=== PATIENT | female | born 1950 | race Caucasian/White ===

== ENCOUNTER 2017-03-15 19:55 | Observation (INO) | payer OTHER, BC ==
[~2017-03-15] VITALS: Ht 170.2 cm; Wt 74.6 kg
[~2017-03-15 19:55] MED LIST changes: -LISI-787 PO; -METO-217 PO; -OPTIRAY 320 IV PRN; -OXYC-57 PO
[2017-03-15] MEDS ORDERED: SODIUM CHLORIDE 0.9% 1000ML 1,000 ML IV STA (20:26)
[2017-03-15 21:04] LABS: BASO % 0.1 %; BASO ABS # 0.01 K/uL (0-0.2); COMPLETE YES; EOS % 0.2 %; HEMATOCRIT 36.8 % (37-47); IG% 0.1 %; LYMPH % 19.8 %; LYMPH ABS # 1.63 K/uL (1.2-3.4); MEAN CELL VOLUME 90.2 fL (80-100); MEAN CORPUSCULAR HEMOGLOBIN 30.1 pg (25-34); MEAN CORPUSCULAR HGB CONC 33.4 g/dl (32-36); MEAN PLATELET VOLUME 8.5 fL (7.4-10.4); NEUT % 70.8 %; PLATELET COUNT 158 K/uL (130-400); RED BLOOD COUNT 4.08 M/uL (4.2-5.4); WHITE BLOOD COUNT 8.24 K/uL (4.8-10.8)
--- NOTE | 2017-03-15 21:05 | EMERGENCY ROOM VISIT NOTE ---
History Report prepared by Lazarus: Serena Aparicio Under the Supervision of: Dr. Ld Colon M.D. First contact with patient: 20:10 Chief Complaint: ABDOMINAL PAIN Stated Complaint: APPENDIX Nursing Triage Summary: Patient states she had a CT done today and was told she has appendicitis. History of Present Illness The patient is a 66 year old female who presents to the Emergency Room requesting an appendectomy. She has been having constant abdominal pain since yesterday and went to her PCP and was directed to come to [facility], where she had a CT scan 1 hour [employer] to the ED for surgery. She notes the scan revealed appendicitis. She notes abdominal pain, pain with breathing, chills, and fevers. She rates her pain a 6/10 in severity. She notes the pain worsens with walking. She has a history of diverticulitis, though this pain is worse. She denies any nausea. She has a history of HTN, HLD, and Raynaud's disease. She notes taking half a dose of Xanax nightly. She has had a hysterectomy and thyroidectomy. Source of History: patient, spouse/significant other Onset: 1 hour [employer] Position: abdomen (RLQ) Symptom Intensity: 6/10 Quality: other (abdominal pain) Timing: constant Modifying Factors (Worsening): other (walking) Associated Symptoms: + fevers, + chills, + abdominal pain Note: She notes pain with breathing. Review of Systems As above. All other systems reviewed were negative unless otherwise stated in history. At least 10 were reviewed Past Medical & Surgical Medical Problems: (1) HTN (hypertension) Surgical Problems: (1) H/O thyroidectomy (2) H/O: hysterectomy Old medical records were reviewed. Nurse's notes were reviewed and I agree with. Family History Heart disease Hypertension Social History Smoking Status: Current Every Day Smoker Drug Use: none Marital Status: Housing Status: lives with family Occupation Status: unemployed Current/Historical Medications Scheduled Alprazolam (Alprazolam), 0.5 TAB PO HS Aspirin (Aspirin Ec), 81 MG PO QPM Atorvastatin (Lipitor), 20 MG PO HS Calcium Carbonate-Cholecalcife (Caltrate 600+D), 1 TAB PO DAILY Fish Oil ([place]-3), 1 CAP PO DAILY Levothyroxine Sodium (Synthroid), 100 MCG PO QAM Lisinopril/Hctz (Zestoretic 20MG/12.5MG), 0.5 TAB PO DAILY Metoprolol Succinate (Toprol Xl), 50 MG PO DAILY Multivitamins/Minerals (Mvi With Minerals), 1 TAB PO DAILY Allergies Coded Allergies: No Known Allergies (Verified , 03/15/17) Physical Exam Vital Signs Date Time Temp Pulse Resp B/P (MAP) Pulse Ox O2 Delivery O2 Flow Rate FiO2 03/16/17 01:30 36.9 67 16 149/68 (104) 96 Room Air 03/16/17 01:20 36 70 16 132/71 (96) 97 Room Air 03/16/17 01:10 36 65 16 143/68 (84) 100 Oxymask 10 03/16/17 01:00 36 67 17 148/71 (85) 100 Oxymask 10 03/16/17 00:50 35.9 74 16 162/76 100 Oxymask 10 03/15/17 22:12 78 16 140/78 99 Room Air 03/15/17 20:06 36.3 86 18 114/73 97 Room Air Physical Exam General: Non-ill appearing middle-aged female in no acute distress. HEENT: Normal cephalic atraumatic. Pupils are equal round and reactive to light. Sclerae anicteric. Extraocular movements are intact. Oropharynx is pink with moist mucous membranes. No swelling of the mouth lips or tongue. Neck: Supple with a midline trachea. No meningeal signs or stiffness, no JVD or bruits. No Stridor. Chest: Clear to auscultation bilaterally. No wheezes or rhonchi. No increased work of breathing. Heart: regular rate and rhythm. Abdomen: Moderate tenderness to RLQ with guarding, nondistended without rebound or rigidity. Extremities: No cyanosis clubbing or edema. No calf tenderness or assymetry Spine/Back. Non tender to palpation. No CVA tenderness Skin: Good turgor without rashes. Neurologic exam: Cranial nerves two through 12 are intact. Motor and sensation are intact and symmetrical throughout. Medical Decision & Procedures ER Provider Diagnostic Interpretation: Radiology results as stated below per my review and radiologist interpretation: SINGLE VIEW CHEST CLINICAL HISTORY: Atypical chest pain. Appendicitis. FINDINGS: An AP, portable, upright chest radiograph is compared to study dated 01/10/2007. The examination is degraded by portable technique and patient rotation. The heart is top normal for projection and there is atherosclerotic calcification of the thoracic aorta. There is minimal bibasilar atelectasis. The lungs and pleural spaces are otherwise clear. No pneumothorax is seen. The skeletal structures are osteopenic. The bony thorax is grossly intact. IMPRESSION: No acute cardiopulmonary abnormality. Electronically signed by: Gildardo Stark M.D. 03/15/2017 9:27 PM Dictated Date/Time: 03/15/2017 9:25 PM Laboratory Results 03/15/17 20:50 Red Blood Count 4.08, Mean Corpuscular Volume 90.2, Mean Corpuscular Hemoglobin 30.1, Mean Corpuscular Hemoglobin Concent 33.4, Mean Platelet Volume 8.5, Neutrophils (%) (Auto) 70.8, Lymphocytes (%) (Auto) 19.8, Monocytes (%) (Auto) 9.0, Eosinophils (%) (Auto) 0.2, Basophils (%) (Auto) 0.1, Neutrophils # (Auto) 5.83, Lymphocytes # (Auto) 1.63, Monocytes # (Auto) 0.74, Eosinophils # (Auto) 0.02, Basophils # (Auto) 0.01 03/15/17 20:50 Test 03/15/17 20:50 White Blood Count 8.24 K/uL (4.8-10.8) Red Blood Count 4.08 M/uL (4.2-5.4) Hemoglobin 12.3 g/dL (12.0-16.0) Hematocrit 36.8 % (37-47) Mean Corpuscular Volume 90.2 fL (80-100) Mean Corpuscular Hemoglobin 30.1 pg (25-34) Mean Corpuscular Hemoglobin Concent 33.4 g/dl (32-36) Platelet Count 158 K/uL (130-400) Mean Platelet Volume 8.5 fL (7.4-10.4) Neutrophils (%) (Auto) 70.8 % Lymphocytes (%) (Auto) 19.8 % Monocytes (%) (Auto) 9.0 % Eosinophils (%) (Auto) 0.2 % Basophils (%) (Auto) 0.1 % Neutrophils # (Auto) 5.83 K/uL (1.4-6.5) Lymphocytes # (Auto) 1.63 K/uL (1.2-3.4) Monocytes # (Auto) 0.74 K/uL (0.11-0.59) Eosinophils # (Auto) 0.02 K/uL (0-0.5) Basophils # (Auto) 0.01 K/uL (0-0.2) RDW Standard Deviation 42.8 fL (36.4-46.3) RDW Coefficient of Variation 13.1 % (11.5-14.5) Immature Granulocyte % (Auto) 0.1 % Immature Granulocyte # (Auto) 0.01 K/uL (0.00-0.02) Anion Gap 7.0 mmol/L (3-11) Est Creatinine Clear Calc Drug Dose 64.0 ml/min Estimated GFR () 78.8 Estimated GFR (Non- 68.0 BUN/Creatinine Ratio 14.6 (10-20) Calcium Level 9.3 mg/dl (8.5-10.1) Total Bilirubin 0.7 mg/dl (0.2-1) Direct Bilirubin 0.2 mg/dl (0-0.2) Aspartate Amino Transf (AST/SGOT) 19 U/L (15-37) Alanine Aminotransferase (ALT/SGPT) 26 U/L (12-78) Alkaline Phosphatase 63 U/L (45-117) Total Protein 7.6 gm/dl (6.4-8.2) Albumin 3.6 gm/dl (3.4-5.0) Lipase 83 U/L (73-393) Laboratory studies as stated above per my review. Medications Administered Medications (Trade) Dose Ordered Sig/Jono Route Start Time Stop Time Status Last Admin Dose Admin Sodium Chloride 1,000 ml @ 999 mls/hr Q1H1M STAT IV 03/15/17 20:26 03/15/17 21:26 DC 03/15/17 20:26 999 MLS/HR Lidocaine HCl (Xylocaine 1% Inj (Local)) 20 ml STK-MED ONCE .ROUTE 03/15/17 23:48 03/15/17 23:49 DC 03/16/17 00:35 12 ML Bupivacaine HCl (Marcaine 0.5% MPF Inj) 30 ml STK-MED ONCE .ROUTE 03/15/17 23:48 03/15/17 23:49 DC 03/16/17 00:34 12 ML Bacitracin (Bacitracin Oint) 45 appln STK-MED ONCE .ROUTE 03/15/17 23:48 03/15/17 23:49 DC 03/16/17 00:33 45 APPLN ECG Indication: abdominal pain, other Rate (beats per minute): 78 Rhythm: normal sinus Findings: no acute ischemic change, no ectopy Change: no significant change Change: compared to 04/08/14 ED Course 2009: Past medical records reviewed. The patient was evaluated in room A12, and a complete history and physical examination were performed. 2029: I spoke with Dr. Conte, surgeon. We discussed the patients case. The patient will be evaluated by the [facility] for further management. Medical Decision Differentials include, but are not limited to: appendicitis, sepsis, and electrolyte or metabolic abnormality. This patient comes in as described above. She was referred to the ER after having a CAT scan which showed acute appendicitis. She's been feeling sick since last evening. She is exquisitely tender on my exam and the lower abdomen and has some guarding. IV access was established and blood work was obtained. We also did a preop EKG and chest x-ray. She has no acute electrolyte or metabolic abnormality. Her EKG does not show any acute ischemic changes or ectopy. Her white count is not elevated. Given her CAT scan findings, I do think she needs to be evaluated by surgery and have an appendectomy. I did consult Dr. Conte, and he saw her in the emergency department and is going to take her to the operating room for an appendectomy. Consults Time Called: 2026 Consulting Physician: Dr. Conte, surgeon Returned Call: [address] Conte, surgeon. We discussed the patients case. The patient will be evaluated by the [facility] for further management. Impression Primary Impression: Acute appendicitis Scribe Attestation The scribe's documentation has been prepared under my direction and personally reviewed by me in its entirety. I confirm that the note above accurately reflects all work, treatment, procedures, and medical decision making performed by me. Departure Information Dispostion Being Evaluated By Hospitalist Referrals No Doctor, Assigned (PCP) Patient Instructions My [facility] [address]
--- NOTE | 2017-03-15 21:28 | DIAGNOSTIC IMAGING REPORT ---
SINGLE VIEW CHEST CLINICAL HISTORY: Atypical chest pain. Appendicitis. FINDINGS: An AP, portable, upright chest radiograph is compared to study dated 01/10/2007. The examination is degraded by portable technique and patient rotation. The heart is top normal for projection and there is atherosclerotic calcification of the thoracic aorta. There is minimal bibasilar atelectasis. The lungs and pleural spaces are otherwise clear. No pneumothorax is seen. The skeletal structures are osteopenic. The bony thorax is grossly intact. IMPRESSION: No acute cardiopulmonary abnormality. Electronically signed by: Gildardo Stark M.D. 03/15/2017 9:27 PM Dictated Date/Time: 03/15/2017 9:25 PM
[2017-03-15 21:29] LABS: BUN/CREATININE RATIO 14.6 (10-20); CALCIUM 9.3 mg/dl (8.5-10.1); CREATININE 0.88 mg/dl (0.60-1.20); POTASSIUM 3.8 mmol/L (3.5-5.1)
[2017-03-15] MEDS ORDERED: LISI-787 PO (21:33)
[2017-03-15] MEDS ORDERED: METO-217 PO (21:33)
--- NOTE | 2017-03-15 21:33 | Surgery Consultation ---
Consultation Date of Consultation: Mar 15, 2017. Attending Physician: History of Present Illness The patient is a 66 year old female who presents to the Emergency Room requesting an appendectomy. She notes that she had a CT scan at [facility] an hour [employer]. She notes the scan revealed appendicitis.She was directed to come the ED for surgery. She notes abdominal pain, pain with breathing, chills, and fevers. She notes the pain worsens with walking. She has a history of diverticulitis, though this pain is worse. She had severe abdominal pain and made an appointment with her PCP. She denies any nausea. She has a history of HTN, HLD, and Raynaud's disease. She notes taking half a dose of Xanax nightly. She has had a hysterectomy and thyroidectomy. I saw pt at ER, pt is still have RLQ pain, pt denies fever, no diarrhea, pt had CT scan- report acute appendicitis, Family History Heart disease Hypertension Social History Smoking Status: Current Every Day Smoker Smokeless Tobacco Use: No Alcohol Use: none Drug Use: none Marital Status: Housing Status: lives with family Occupation Status: unemployed Allergies Coded Allergies: No Known Allergies (Verified , 03/08/16) Home Medications Scheduled Alprazolam (Alprazolam), 0.5 MG PO HS Aspirin (Aspirin Ec), 81 MG PO QPM Atorvastatin (Lipitor), 20 MG PO HS Bromfenac Sodium (Ophth) (Prolensa), 1 DROP OPR QAM Calcium Carbonate-Cholecalcife (Caltrate 600+D), 1 TAB PO DAILY Fish Oil ([place]-3), 1 CAP PO DAILY Levothyroxine Sodium (Synthroid), 100 MCG PO QAM Lisinopril (Zestril), 20 MG PO QAM Metoprolol Succinate (Metoprolol Succinate ER), 50 MG PO QAM Multivitamins/Minerals (Mvi With Minerals), 1 TAB PO DAILY Prednisolone Acetate (Ophth) (Pred Forte 1% Oph), 1 DROPS OPR TID Current Inpatient Medications Current Inpatient Medications Medications (Trade) Dose Ordered Sig/Jono Route Start Time Stop Time Status Last Admin Dose Admin Sodium Chloride 1,000 ml @ 999 mls/hr Q1H1M STAT IV 03/15/17 20:26 03/15/17 21:26 03/15/17 20:26 999 MLS/HR Review of Systems Constitutional: No fever, No chills, No sweats, No weight loss, No weakness, No fatigue, No problem reported Eyes: No worsening of vision, No eye pain, No redness, No discharge, No diplopia, No problem reported ENT: No hearing loss, No unusual epistaxis, No nasal symptoms, No sore throat, No tinnitus, No dental problems, No trouble swallowing, No problem reported Respiratory: No cough, No sputum, No wheezing, No shortness of breath, No dyspnea on exertion, No dyspnea at rest, No hemoptysis, No problem reported Cardiovascular: No chest pain, No orthopnea, No PND, No edema, No claudication , No palpitations, No problem reported Abdomen: + pain, + nausea Musculoskeletal: No joint pain, No muscle pain, No swelling, No calf pain, No problem reported Genitourinary - Female: No dysuria, No urinary frequency, No urinary urgency, No urinary incontinence, No urinary retention, No hematuria, No dysmenorrhea, No menorrhagia, No metrorrhagia, No rash, No vaginal bleeding, No vaginal discharge, No vaginal itching, No vulvodynia, No , No problem reported Neurologic: No memory loss, No paralysis, No weakness, No numbness/tingling, No vertigo, No balance problems, No problem reported Psychiatric: No depression symptoms, No anhedonism, No anxiety, No insomnia, No substance abuse, No problem reported Endocrine: No fatigue, No excessive thirst, No excessive urination, No problem reported Hematologic / Lymphatic: No abnormal bleeding/bruising, No clotting problems, No swollen lymph nodes, No night sweats, No problem reported Physical Exam Date Time Temp Pulse Resp B/P (MAP) Pulse Ox O2 Delivery O2 Flow Rate FiO2 03/15/17 20:06 36.3 86 18 114/73 97 Room Air General Appearance: WD/WN, + mild distress Head: normocephalic Eyes: normal inspection ENT: normal ENT inspection Neck: supple, no JVD Respiratory/Chest: chest non-tender, lungs clear, normal breath sounds Cardiovascular: regular rate, rhythm, no edema, no gallop, no JVD, no murmur Abdomen/GI: normal bowel sounds, soft, no organomegaly, no pulsatile mass, + tenderness (AT RLQ no rebound pain) Extremities/Musculoskelatal: normal inspection, no calf tenderness, normal capillary refill Neurologic/Psych: no motor/sensory deficits, alert, normal mood/affect Skin: normal color, warm/dry, no rash Laboratory Results Last 24 Hours Test 03/15/17 20:50 White Blood Count 8.24 K/uL Red Blood Count 4.08 M/uL Hemoglobin 12.3 g/dL Hematocrit 36.8 % Mean Corpuscular Volume 90.2 fL Mean Corpuscular Hemoglobin 30.1 pg Mean Corpuscular Hemoglobin Concent 33.4 g/dl Platelet Count 158 K/uL Mean Platelet Volume 8.5 fL Neutrophils (%) (Auto) 70.8 % Lymphocytes (%) (Auto) 19.8 % Monocytes (%) (Auto) 9.0 % Eosinophils (%) (Auto) 0.2 % Basophils (%) (Auto) 0.1 % Neutrophils # (Auto) 5.83 K/uL Lymphocytes # (Auto) 1.63 K/uL Monocytes # (Auto) 0.74 K/uL Eosinophils # (Auto) 0.02 K/uL Basophils # (Auto) 0.01 K/uL RDW Standard Deviation 42.8 fL RDW Coefficient of Variation 13.1 % Immature Granulocyte % (Auto) 0.1 % Immature Granulocyte # (Auto) 0.01 K/uL Assessment & Plan Assessment:pt is a 66 yo famale who presents to ER with one day history RLQ pain , pt had CT scan- acute appendicitis, IMP: acute appendicitis Plan, pt will have laparoscopic appendectomy, possible open , D/W benefits, risks and alternatives of the procedure, the risks -infection, bleeding, injury Bowel, abscess, ND, DVT, stroke, , pt understood, she and her agree with the plan, I answered all questions,
[2017-03-15 22:12] VITALS: O2SAT 99
[2017-03-15] MEDS ORDERED: HYDROmorphone INJ 2 MG/ML SYR/VIAL IV PRN (23:30)
[2017-03-15] MEDS ORDERED: MEPERIDINE HCL 25 MG/ML CARP IV PRN (23:30)
[2017-03-15] MEDS ORDERED: LABETALOL HCL IV 5 MG/ML 20ML IV PRN (23:30)
[2017-03-15] MEDS ORDERED: NALOXONE HCL 0.4 MG/1 ML VIAL/CARP IV PRN (23:30)
[2017-03-15] MEDS ORDERED: PHENYLEPHRINE 100MCG/ML 5ML SYR IV PRN (23:30)
[2017-03-15] MEDS ORDERED: EpHEDrine SULFATE INJ 50 MG/ML AMP IV PRN (23:30)
[2017-03-15] MEDS ORDERED: ONDANSETRON INJ 2 MG/ML 2 ML VIAL IV PRN (23:30)
[2017-03-15] MEDS ORDERED: ATROPINE SULFATE 0.1 MG/ML 5ML SYR IV PRN (23:30)
[2017-03-15] MEDS ORDERED: FENTANYL CITRATE INJ 50 MCG/1 ML 2 ML VIAL IV PRN (23:30)
[2017-03-15] MEDS ORDERED: FLUMAZENIL 0.1 MG/1 ML 10 ML VIAL IV PRN (23:30)
[2017-03-15] MEDS ORDERED: CEFOXITIN SOD 2 GM VIAL IV STA (23:41)
--- NOTE | 2017-03-15 23:41 | History & Physical Bridge Note ---
H&P Re-Evaluation Bridge Note: I have examined the patient, reviewed the History & Physical and in the interval since the performance of the History & Physical I have noted the following changes of clinical significance: No changes noted
[2017-03-15] MEDS ORDERED: MIDAZOLAM HCL 1 MG/ML 2ML VIAL ONE (23:46)
[2017-03-15] MEDS ORDERED: FENTANYL CITRATE INJ 50 MCG/1 ML 2 ML VIAL ONE (23:46)
[2017-03-15] MEDS ORDERED: LIDOCAINE/EPINEPHRINE 1% 20 ML VIAL ONE (23:47)
[2017-03-15] MEDS ORDERED: BACITRACIN OINT 15 GM TUBE ONE (23:48)
[2017-03-15] MEDS ORDERED: LIDOCAINE HCL 2% 2 ML VIAL (20MG/ML) ONE (23:48)
[2017-03-15] MEDS ORDERED: PROPOFOL IV EMULSION 10 MG/ML 20 ML VIAL IV ONE (23:48)
[2017-03-15] MEDS ORDERED: LIDOCAINE HCL 1% 20 ML VIAL ONE (23:48)
[2017-03-15] MEDS ORDERED: DEXAMETHASONE SOD INJ 4 MG/ML VIAL ONE (23:48)
[2017-03-15] MEDS ORDERED: SUCCINYLCHOLINE 100MG/5ML SYR IV ONE (23:48)
[2017-03-15] MEDS ORDERED: ONDANSETRON INJ 2 MG/ML 2 ML VIAL ONE (23:48)
[2017-03-15] MEDS ORDERED: BUPIVACAINE 0.5 % 5 MG/1 ML MPF 30ML VIAL ONE (23:48)
[2017-03-15] MEDS ORDERED: CEFOXITIN SOD 1 GM VIAL ONE (23:51)
[2017-03-16] VITALS (7 sets, daily range): BP systolic 121–154; BP diastolic 65–76; PULSE 61–69; TEMP 36.4–36.8; O2SAT 92–96; Ht 170.2 cm; Wt 74.6 kg
[2017-03-16] MEDS ORDERED: ROCURONIUM BROMIDE 10 MG/ML 5 ML VIAL IV ONE (00:13)
[2017-03-16] MEDS ORDERED: GLYCOPYRROLATE INJ 0.2 MG/ML VIAL ONE (00:15)
[2017-03-16] MEDS ORDERED: NEOSTIGMINE METHYLSULFATE 5 MG/5 ML SYR ONE (00:15)
[2017-03-16] MEDS ORDERED: KETOROLAC TROMETHAMINE 30 MG/ML VIAL ONE (00:21)
--- NOTE | 2017-03-16 00:42 | [facility] Post Operative Brief Note ---
Immediate Operative Summary Operative Date Mar 16, 2017. Pre-Operative Diagnosis Acute Appendicitis Post-Operative Diagnosis Acute Appendicitis Procedure(s) Performed Laparoscopic Appendectomy Surgeon Dr. Bing Conte Charge Account Identification Clerk Surgeon(s) None Estimated Blood Loss 10 ml Findings acute appendicitis Fluids (cc crystalloids) 800ml Specimens Permanent Specimen A: Appendix Drains none Anesthesia general Complication(s) None Disposition Recovery Room / PACU
[2017-03-16] MEDS ORDERED: ACETAMINOPHEN 325 MG TAB PO PRN (00:45)
[2017-03-16] MEDS ORDERED: ONDANSETRON INJ 2 MG/ML 2 ML VIAL IV PRN (00:45)
[2017-03-16] MEDS ORDERED: OXYCODONE/ACETAMINOPHEN 5-325 TAB PO PRN (00:45)
[2017-03-16] MEDS ORDERED: HYDROmorphone INJ 1 MG/ML SYR IV PRN (00:45)
[2017-03-16] MEDS ORDERED: IV FLUIDS COMPLETED PRN (01:00)
--- NOTE | 2017-03-16 01:16 | Anesthesiology Progress Note ---
Anesthesia Post Op Note Date & Time Mar 16, 2017 at 01:16 Vital Signs Pain Intensity: 0 Vital Signs Past 12 Hours Date Time Temp Pulse Resp B/P (MAP) Pulse Ox O2 Delivery O2 Flow Rate FiO2 03/16/17 01:10 36 65 16 143/68 (84) 100 Oxymask 10 03/16/17 01:00 36 67 17 148/71 (85) 100 Oxymask 10 03/16/17 00:50 35.9 74 16 162/76 100 Oxymask 10 03/15/17 22:12 78 16 140/78 99 Room Air 03/15/17 20:06 36.3 86 18 114/73 97 Room Air Notes Mental Status: alert / awake / arousable, participated in evaluation Pt Amnestic to Procedure: Yes Nausea / Vomiting: adequately controlled Pain: adequately controlled Airway Patency, RR, SpO2: stable & adequate BP & HR: stable & adequate Hydration State: stable & adequate Anesthetic Complications: no major complications apparent
--- NOTE | 2017-03-16 01:28 | OPERATIVE REPORT ---
DATE OF OPERATION: 03/15/2017 PREOPERATIVE DIAGNOSIS: Acute appendicitis. POSTOPERATIVE DIAGNOSIS: Same. PROCEDURE: Laparoscopic appendectomy. SURGEON: Bing Conte MD. ANESTHESIA: General. ESTIMATED BLOOD LOSS: About 10 mL. FINDINGS: Acute appendicitis. IV FLUIDS: 800 mL. COMPLICATIONS: None. INDICATIONS FOR THE PROCEDURE: This is a 66-year-old female who presented to the ED with 1 day history of right lower quadrant pain. The patient had a CT scan confirm patient had acute appendicitis. We decided to take the patient to the OR and do laparoscopic appendectomy, possible open. I did talk to the patient and the patient's about the benefit and risk, alternate procedure. I indicated the risks may include but not limited such as bleeding, infection, abscess, myocardial infarction, DVT, injury to bowel, and even . They understand. The patient signed informed consent and I answered all questions. DETAILS OF PROCEDURE: We brought the patient to the OR, put the patient in the supine position. The patient received SCD on bilateral legs to prevent DVT. Also, the patient received 2 gram cefoxitin IV for prophylactic antibiotic. The patient received general anesthesia without difficulty. The abdomen was appropriately prepped in routine sterile fashion. After a timeout, I injected the local anesthesia by using 1% lidocaine mixed with 0.5% Marcaine just above umbilicus. Then made a small incision just above the umbilicus, opened the fascia and opened peritoneum under direct vision. I put a Airam trocar in, connected to CO2 to create pneumoperitoneum. Flow rate at 6 liter per minute. Pressure not more than 14 mmHg. Once we got a nice pneumoperitoneum, I put the camera in, looked around the abdomen showing normal finding on the stomach, small bowel, large bowel, liver; however the appendix showed significant inflammation, swollen and confirmed diagnosis of acute appendicitis. Then, we put another two 5 mm trocars on the left lower quadrant area. Once all trocars were in, mobilized the appendix and used Harmonic to take down the appendiceal. I used 45 Endo-LEONARD staple, transected the base of the appendix, rechecked no active bleeding, no leak and we removed the appendix through the catcher bag. Then we reinserted Airam trocar in connected to CO2 to create pneumoperitoneum again and looked around the abdomen, no active bleeding, no leak from the bowel, staple line and no injury to bowel. Then we removed all trocar under direct vision. No active bleeding from trocar sites. The pneumoperitoneum was released. Then I closed the umbilical incision, fascial layer by using #1 Vicryl [id number] x2, closed subcutaneous layer by using 2-0 Vicryl continuous running, closed the skin by using 4-0 Vicryl continuous running. Then we closed another two 5 mm trocar site only by using 4-0 Vicryl. Then we put the dressing on. The patient tolerated the procedure well. All the instrument, needle and sponge count correct x2 at the end of case. The patient transferred to recovery room in stable condition. After the procedure, I did talk to the patient's about the OR findings and procedure we did. He understands. I attest to the content of the Intraoperative Record and any orders documented therein. Any exceptions are noted below. DAISY
[2017-03-16] MEDS ORDERED: D5W AND 1/2NSS + 20MEQ KCL 1,000 ML IV SCH (02:30)
[2017-03-16] MEDS ORDERED: CEFTRIAXONE SOD INJ 1 GM in DEXTROSE 5% ADD-VANTAGE 50ML 50 ML IV SCH (09:00)
--- NOTE | 2017-03-16 09:49 | Surgery Progress Note ---
Surgery Progress Note Date of Service Mar 16, 2017. Subjective Post OP Day: POD # 0 s/p laparoscopic appendectomy + feeling well, + ambulating, + bowel movement, + flatus, + pain controlled, No complaints, No chest pain, No SOB, No nausea, No vomiting " I am feeling really well", preoperative pain completely resolved Has not required any pain medication since surgery +hungry Objective Vital Signs: Date Time Temp Pulse Resp B/P (MAP) Pulse Ox O2 Delivery O2 Flow Rate FiO2 03/16/17 07:16 36.5 61 19 121/70 (87) 94 Room Air 03/16/17 04:54 36.4 69 16 128/65 (86) 93 Room Air 03/16/17 03:45 36.4 67 16 121/69 (86) 96 Room Air 03/16/17 02:44 36.8 69 16 123/73 (90) 93 Room Air 03/16/17 02:15 36.4 65 16 134/76 (95) 94 Room Air 03/16/17 01:45 36.6 65 16 154/68 (96) 92 Room Air 03/16/17 01:45 36.8 69 16 123/73 Room Air 03/16/17 01:45 Room Air 03/16/17 01:45 Room Air 03/16/17 01:30 36.9 67 16 149/68 (104) 96 Room Air 03/16/17 01:20 36 70 16 132/71 (96) 97 Room Air 03/16/17 01:10 36 65 16 143/68 (84) 100 Oxymask 10 03/16/17 01:00 36 67 17 148/71 (85) 100 Oxymask 10 03/16/17 00:50 35.9 74 16 162/76 100 Oxymask 10 03/15/17 22:12 78 16 140/78 99 Room Air 03/15/17 20:06 36.3 86 18 114/73 97 Room Air General Appearance: WD/WN, no apparent distress Head: normocephalic, atraumatic Neck: trachea midline Respiratory/Chest: no respiratory distress, no accessory muscle use Abdomen: non tender, non distended, soft, no organomegaly, no pulsatile mass Incision(s): clean, dry (dressings clean and dry, incisions not inspected) Laboratory Results: Results Past 24 Hours Test 03/15/17 20:50 Range/Units White Blood Count 8.24 4.8-10.8 K/uL Red Blood Count 4.08 4.2-5.4 M/uL Hemoglobin 12.3 12.0-16.0 g/dL Hematocrit 36.8 37-47 % Mean Corpuscular Volume 90.2 80-100 fL Mean Corpuscular Hemoglobin 30.1 25-34 pg Mean Corpuscular Hemoglobin Concent 33.4 32-36 g/dl Platelet Count 158 130-400 K/uL Mean Platelet Volume 8.5 7.4-10.4 fL Neutrophils (%) (Auto) 70.8 % Lymphocytes (%) (Auto) 19.8 % Monocytes (%) (Auto) 9.0 % Eosinophils (%) (Auto) 0.2 % Basophils (%) (Auto) 0.1 % Neutrophils # (Auto) 5.83 1.4-6.5 K/uL Lymphocytes # (Auto) 1.63 1.2-3.4 K/uL Monocytes # (Auto) 0.74 0.11-0.59 K/uL Eosinophils # (Auto) 0.02 0-0.5 K/uL Basophils # (Auto) 0.01 0-0.2 K/uL RDW Standard Deviation 42.8 36.4-46.3 fL RDW Coefficient of Variation 13.1 11.5-14.5 % Immature Granulocyte % (Auto) 0.1 % Immature Granulocyte # (Auto) 0.01 0.00-0.02 K/uL Sodium Level 134 136-145 mmol/L Potassium Level 3.8 3.5-5.1 mmol/L Chloride Level 101 98-107 mmol/L Carbon Dioxide Level 26 21-32 mmol/L Anion Gap 7.0 3-11 mmol/L Blood Urea Nitrogen 13 7-18 mg/dl Creatinine 0.88 0.60-1.20 mg/dl Est Creatinine Clear Calc Drug Dose 64.0 ml/min Estimated GFR () 78.8 Estimated GFR (Non- 68.0 BUN/Creatinine Ratio 14.6 10-20 Random Glucose 79 70-99 mg/dl Calcium Level 9.3 8.5-10.1 mg/dl Total Bilirubin 0.7 0.2-1 mg/dl Direct Bilirubin 0.2 0-0.2 mg/dl Aspartate Amino Transf (AST/SGOT) 19 15-37 U/L Alanine Aminotransferase (ALT/SGPT) 26 12-78 U/L Alkaline Phosphatase 63 45-117 U/L Total Protein 7.6 6.4-8.2 gm/dl Albumin 3.6 3.4-5.0 gm/dl Lipase 83 73-393 U/L Assessment & Plan POD # 0 s/p laparoscopic appendectomy -vitals stable - minimal post op pain - ambulating and urinating without difficulty Plan: Advance diet to full liquids and then as tolerated continue current pain management as needed Encouraged OOB to chair and ambulation discharge home today Dr. Conte has seen and examined patient, agrees with above
[2017-03-16] MEDS ORDERED: OXYC-57 PO (11:09)
--- NOTE | 2017-03-16 11:11 | Discharge Instructions ---
Discharge Instructions Date of Service Mar 16, 2017. Admission Reason for Admission: Acute Appendicitis Discharge Discharge Diagnosis / Problem: same Discharge Goals Goal(s): Decrease discomfort, Improve function Activity Recommendations Activity Limitations: as noted below No heavy lifting over 20 pounds for 3-4 weeks No strenuous activity until cleared by surgeon No submerging incisions underwater for 2 weeks (no bathing, swimming, or hot tubs) No driving while taking narcotic pain medication or until you are pain free . Instructions / Follow-Up Instructions / Follow-Up You may shower in 4 days and then remove dressings, sponge bath and wash hair in meantime Leave steri strips on incisions for 7 days and then remove Replace dressings daily or as needed Follow-up in surgical office in 1-2 weeks, please call office at [phone] to make an appointment Walking and light activity is encouraged to prevent blood clots from forming You will be given Prescription for Narcotic pain medication as needed, if you do not need them you do not need to get the prescription filled you can take Extra strength Tylenol or Ibuprofen as needed for pain. Current Hospital Diet Patient's current hospital diet: AHA Diet (Heart Healthy) Discharge Diet Recommended Diet: Regular Diet Procedures Procedures Performed: Laparoscopic Appendectomy Pending Studies Studies pending at discharge: yes List of pending studies: Appendix pathology- will be reviewed at follow-up visit Medical Emergencies . Who to Call and When: Medical Emergencies: If at any time you feel your situation is an emergency, please call 911 immediately. . Non-Emergent Contact Non-Emergency issues call your: Primary Care Provider, Surgeon Call Non-Emergent contact if: you have a fever, temperature is above 101, your pain is not controlled, your pain is worsening, your pain is unusual for you, wound has increased drainage, wound has increased redness, wound has increased pain . "Provider Documentation" section prepared by Maria De Jesus Rahman. . VTE Core Measure Inpt VTE Proph given/why not?: SCD's [place] Drug Monitoring Program Search Results: patient reviewed within database, no issues identified
--- NOTE | 2017-03-17 10:51 | Discharge Summary ---
Discharge Summary Dates Admission Date / Time: Mar 16, 2017 at 00:45 Discharge Date: Mar 16, 2017 Dispostion / Condition Discharge Disposition: Home Condition at Discharge: Good Principal Diagnosis (1) Acute appendicitis Problem List (1) HTN (hypertension) (2) Palpitations (3) Urinary tract infection (4) H/O thyroidectomy (5) H/O: hysterectomy Consultations / Procedures Procedures: Laparoscopic Appendectomy Pending Studies / Follow-Up Appendix pathology to be reviewed at follow up visit Medication Reconciliation New Medications: Oxycodone/Acetaminophen 5MG/325MG (Percocet 5MG/325MG) Tab 1 TABLET PO Q6H PRN for Pain, #12 TAB Continued Medications: Alprazolam (Alprazolam) 0.5 Mg Tab 0.5 TAB PO HS Aspirin (Aspirin Ec) 81 Mg Tab 81 MG PO QPM Atorvastatin (Lipitor) 20 Mg Tab 20 MG PO HS Calcium Carbonate-Cholecalcife (Caltrate 600+D) 1 Tab Tab 1 TAB PO DAILY Fish Oil ([place]-3) 1 Ea Cap 1 CAP PO DAILY, CAP Levothyroxine Sodium (Synthroid) 100 Mcg Tab 100 MCG PO QAM Lisinopril/Hctz (Zestoretic 20MG/12.5MG) Tab 0.5 TAB PO DAILY, TAB Metoprolol Succinate (Toprol Xl) 50 Mg Tabcr 50 MG PO DAILY, TAB Multivitamins/Minerals (Mvi With Minerals) Tab 1 TAB PO DAILY Admission HPI Per the Admitting provider: The patient is a 66 year old female who presents to the Emergency Room requesting an appendectomy. She notes that she had a CT scan at [facility] an hour G[employer]OL[facility] TESTER. She notes the scan revealed appendicitis.She was directed to come the ED for surgery. She notes abdominal pain, pain with breathing, chills, and fevers. She notes the pain worsens with walking. She has a history of diverticulitis, though this pain is worse. She had severe abdominal pain and made an appointment with her PCP. She denies any nausea. She has a history of HTN, HLD, and Raynaud's disease. She notes taking half a dose of Xanax nightly. She has had a hysterectomy and thyroidectomy. I saw pt at ER, pt is still have RLQ pain, pt denies fever, no diarrhea, pt had CT scan- report acute appendicitis, Hospital Course (1) Acute appendicitis Patient was taken to operating room for laparoscopic possible open appendectomy. Patient tolerated procedure well without any complications. She was transferred to recovery and then to medical/surgical floor for her post operative care. She was started on IV fluids, IV pain medication with po Percocet, IV Zofran, and activity as tolerated. Morning of POD # 1 she was doing very well, no post surgical pain and preoperative pain completely resolved. She did not require any pain medications since surgery. She was hungry therefore diet was advanced to full liquids. She was ambulating and urinating without difficulty. She was discharged home on POD # 1 in stable condition. Discharge Instructions as given to patient Copies To Primary Care Provider: Abimael Matias III, M.D..
== END 2017-03-16 13:17 | disposition home or self-care (01) ==
LOC: C.EDB 19:56 → C.MSW 03-16 00:45 → ENRESERV 03-16 01:02
PROVIDERS: ADMIT Surgery; ATTEND Surgery
DX: K35.80 Unspecified acute appendicitis (principal); I10 Essential (primary) hypertension; E78.5 Hyperlipidemia, unspecified; I73.00 Raynaud's syndrome without gangrene; F17.200 Nicotine dependence, unspecified, uncomplicated; Z79.82 Long term (current) use of aspirin; Z79.899 Other long term (current) drug therapy

== ENCOUNTER → 2017-03-15 | Outpatient (CLI) | payer OTHER, BC ==
[~2017-03-15] MED LIST: ALPR-411 PO; ASPI81TA28 PO; ATOR-22 PO; BROM0.07 OPR; CALC-354 PO; LISI-725 PO; LISI-787 PO; METO-217 PO; MULTTAB PO; OMEG10007 PO; OPTIRAY 320 IV PRN; OXYC-57 PO; PRED1SUS3 OPR; SYN100 PO; TPRSR/50 PO
--- NOTE | 2017-03-15 19:24 | DIAGNOSTIC IMAGING REPORT ---
CT SCAN OF THE ABDOMEN AND PELVIS WITH IV CONTRAST CLINICAL HISTORY: Right lower quadrant abdominal pain. COMPARISON STUDY: Abdominal radiographs dated 09/19/2005. TECHNIQUE: Following the IV administration of 93 cc of Optiray 320, CT scan of the abdomen and pelvis is performed from the lung bases to the proximal femora. Images are reviewed in the axial, sagittal, and coronal planes. IV contrast was administered without complication. A dose lowering technique was utilized adhering to the principles of ALARA. CT DOSE: 504.43 mGycm FINDINGS: Lung bases: The heart is normal in size and without pericardial effusion. There are coronary artery calcifications. The lung bases are clear. A small hiatal hernia is identified. Liver: The contrast-enhanced liver is normal in size, contour, and attenuation. Fatty infiltration is seen adjacent to falciform ligament. An 8 mm cyst is incidentally noted in segment IV on image #69. There is a 1.5 cm hypervascular lesion in the right lobe seen on image #69. A subcentimeter hypervascular lesion is suggested in the left lobe on image #64. There is no intrahepatic biliary ductal dilatation. The hepatic veins and portal veins are patent. Gallbladder: Unremarkable. Spleen: Normal in size and attenuation. Pancreas: Mildly atrophic and grossly unremarkable. Adrenal glands: Unremarkable. Kidneys: The contrast enhanced kidneys demonstrate cortical atrophy and are without hydronephrosis. The kidneys enhance symmetrically. Subcentimeter cortical hypodensities likely represent cysts but are too small for definitive characterization. Parapelvic cyst is noted on the right. Abdominal vasculature: The abdominal aorta is normal in course and caliber noting moderate to advanced atherosclerotic calcification. Bowel: There is mild to moderate sigmoid diverticulosis without CT evidence of acute diverticulitis. No bowel obstruction is seen. The appendix is distended and fluid-filled measuring up to 1.3 cm in diameter as seen on image #295. The appendiceal wall is thickened and hyperemic and there is periappendiceal inflammation. The appearance is consistent with acute appendicitis. There is no evidence of appendiceal abscess. Peritoneum: There is no intraperitoneal free air or abdominal ascites. There is an indeterminant 3.4 x 2.2 cm cystic lesion identified anterior to the right psoas muscle on image #240. This measures slightly greater than water density and is located along the course of the gonadal vessels. Lymphadenopathy: None. Pelvic viscera: The bladder is normal as visualized. The uterus is surgically absent. No adnexal lesion is seen. Skeletal structures: The skeletal structures are osteopenic. There is mild lumbosacral spondylosis. No lytic or blastic lesions are seen. IMPRESSION: 1. Findings are consistent with acute appendicitis. There is no evidence of abscess or perforation. 2. There is an indeterminant 3.4 x 2.2 cm cystic lesion along the anterior aspect of the right psoas muscle. This measures greater than water density and appears remote from the appendix. The appearance is not typical for abscess. Top differential considerations include an inclusion cyst or lymphangioma. A precautionary 6 month follow-up CT is recommended for reassessment. 3. There is a 1.5 cm hypervascular lesion in the right hepatic lobe. A subcentimeter hypervascular focus is suggested in the left lobe. These are incompletely characterized and may represent benign hemangiomas. These are of low suspicion if there is no cancer history. Consider nonemergent MRI of the liver in follow-up for definitive characterization. 4. Small hiatal hernia. 5. Mild to moderate sigmoid diverticulosis without CT evidence of acute diverticulitis. 6. Additional findings as above. Electronically signed by: Gildardo Stark M.D. 03/15/2017 7:23 PM Dictated Date/Time: 03/15/2017 7:12 PM
== END | disposition home or self-care (01) ==
LOC: C.CTS 17:00
PROVIDERS: ATTEND Family Medicine
DX: R10.31 Right lower quadrant pain (principal); K76.9 Liver disease, unspecified; K44.9 Diaphragmatic hernia without obstruction or gangrene; K57.30 Diverticulosis of large intestine without perforation or abscess without bleeding

== ENCOUNTER → 2017-08-18 | Day surgery (SDC) | payer OTHER, BC ==
[2017-08-14 16:06] VITALS: BMI 27.0
[~2017-08-18] VITALS: Ht 162.6 cm; Wt 73.6 kg
[~2017-08-18] MED LIST changes: -BROM0.07 OPR; +LIDOCAINE HCL 2% 2 ML VIAL (20MG/ML) ONE; -LISI-725 PO; +LISI-787 PO; +METO-217 PO; +MULT-1092 PO; -MULTTAB PO; -PRED1SUS3 OPR; +PROPOFOL IV EMULSION 10 MG/ML 20 ML VIAL ONE; +SODIUM CHLORIDE 0.9% 500ML 500 ML IV ONE; -TPRSR/50 PO
[2017-08-18 07:55] VITALS: Ht 162.6 cm; Wt 73.6 kg
--- NOTE | 2017-08-18 08:45 | Endo History and Physical ---
History & Physical Date of Service: August 18, 2017. Chief Complaint: SCREENING Referring Physician: DR. KEARNEY History of Present Illness screening Past Medical History Anxiety, High Cholesterol, Hypertension, Thyroid Disease Past Surgical History Hx Cardiac Surgery: No Hx Internal Defibrillator: No Hx Pacemaker: No Hx Abdominal Surgery: Yes (HYSTER, APPY) Hx of Implantable Prosthesis: No Hx Post-Op Nausea and Vomiting: No Hx Cancer Surgery: No Hx Thoracic Surgery: No Hx Orthopedic: No Hx Urinary Tract Surgery: No Social History Smoking Status: Current Every Day Smoker Hx Substance Use: No Hx Alcohol Use: Yes (Wine 1 GLASS A NIGHT) Allergies Coded Allergies: No Known Allergies (Verified , 08/18/17) Current Medications Reported Home Medications Medications Dose Route/Sig Max Daily Dose Days Date Category Centrum Silver 50+Women (Multiple Vitamins W/ Minerals) 1 Tab Tab 1 Tab PO DAILY 08/14/17 Reported Toprol Xl (Metoprolol Succinate) 50 Mg Tabcr 50 Mg PO DAILY 03/15/17 Reported Zestoretic 20MG/12.5MG (HCTZ/Lisinopril) Tab 0.5 Tab PO DAILY 03/15/17 Reported Lipitor (Atorvastatin Calcium) 20 Mg Tab 20 Mg PO HS 01/11/16 Reported [place]-3 (Fish Oil) 1 Ea Cap 2 Cap PO DAILY 12/21/15 Reported Synthroid (Levothyroxine Sodium) 100 Mcg Tab 100 Mcg PO QAM 12/21/15 Reported Alprazolam 0.5 Mg Tab 0.5 Tab PO HS 12/21/15 Reported Aspirin Ec (Aspirin) 81 Mg Tab 81 Mg PO QPM 04/08/14 Reported Caltrate 600+D (Calcium Carbonate-Cholecalcife) 1 Tab Tab 1 Tab PO DAILY 04/08/14 Reported Vital Signs Weight (Kilograms): 73.64 Height (Feet): 5 Height (Inches): 4 Date Time Temp Pulse Resp B/P (MAP) Pulse Ox O2 Delivery O2 Flow Rate FiO2 08/18/17 08:11 36.5 94 18 128/89 (102) 96 Room Air Physical Exam General Appearance: WD/WN, no apparent distress Assessment and Plan colonoscopy today
--- NOTE | 2017-08-18 09:09 | Discharge Instructions ---
Endoscopy Patient Instructions Date / Procedure(s) Performed August 18, 2017. Colonoscopy Allergy Information Coded Allergies: No Known Allergies (Verified , 08/18/17) Discharge Date / Findings August 18, 2017. diverticulosis Medication Instructions Restart Stopped Medication(s): OK to resume all home medications. Provider Instructions Activity Restrictions - No exercising or heavy lifting for 24 hours. - Do not drink alcohol the day of the procedure. - Do not drive a car or operate machinery until the day after the procedure. - Do not make any important decisions or sign important papers in 24 hours after the procedure. Following Day: - Return to full activity which may include returning to work/school. Diet Start your diet with liquids and light foods (jello, soup, juice, toast). Then eat your usual diet if not nauseated. Treatment For Common After Affects For mild abdominal pain, bloating, or excessive gas: - Rest - Eat lightly - Lie on right side You should have a repeat colonoscopy for screening in 10 years. Follow-Up Information Follow-up with DR. KEARNEY as scheduled Anesthesia Information What You Should Know You have had a procedure that required some medicine to reduce anxiety and discomfort. This treatment is called moderate sedation. After receiving the treatment, you may be sleepy, but you will be able to breathe on your own. The effects of the treatment may last for several hours. Follow these instructions along with Activity/Diet recommendations noted above: * Do NOT do anything where dizziness or clumsiness would be dangerous. * Rest quietly at home today, then you can be up and about tomorrow. * Have a responsible person stay with you the rest of today. * You may have had an I.V. today. If so, you may take the dressing off later today. Recommendations Call your doctor if: * Trouble breathing * Continuous vomiting for more than 24 hours * Temperature above 101 degrees * Severe abdominal pain or bloating * Pain not relieved by pain medicine ordered * There is increased drainage or redness from any incision * A large amount of rectal bleeding greater than 2-3 tablespoons. (If you had a polyp/s removed or have hemorrhoids, a small amount of blood - from the rectum is to be expected.) * You have any unanswered questions or concerns. IN THE EVENT OF A SERIOUS EMERGENCY, GO TO THE NEAREST EMERGENCY ROOM Your discharge instructions were prepared by provider Latisha Arnold. Patient Instructions Signature Page Sofía Carrillo Patient (or Guardian) Signature/Date: I have read and understand the instructions given to me by my caregivers. Caregiver/RN/Doctor Signature/Date: The above-named patient and/or guardian has received patient instructions on this date. + Original Patient Signature Page (only) stays with chart. Please make copy for patient.
--- NOTE | 2017-08-18 09:15 | GI REPORT ---
Patient Name: Sofía Carrillo Procedure Date: 08/18/2017 8:47 AM Date of : 1950 Admit Type: Outpatient Age: 67 Gender: Female Attending MD: Latisha Arnold DO Procedure: Colonoscopy Providers: Latisha Arnold DO Referring MD: Abimael Matias Indications: Screening for colorectal malignant neoplasm Medicines: Propofol per Anesthesia Complications: No immediate complications. Estimated blood loss: None. Estimated Blood Loss: Estimated blood loss: none. Procedure: Pre-Anesthesia Assessment: - Prior to the procedure, a History and Physical was performed, and patient medications, allergies and sensitivities were reviewed. The patient's tolerance of previous anesthesia was reviewed. - The risks and benefits of the procedure and the sedation options and risks were discussed with the patient. All questions were answered and informed consent was obtained. - Patient identification and proposed procedure were verified prior to the procedure by the physician and the nurse. The procedure was verified in the pre-procedure area in the procedure room. - Mental Status Examination: alert and oriented. Airway Examination: normal oropharyngeal airway and neck mobility. Respiratory Examination: clear to auscultation. CV Examination: normal. Abdominal Examination: bowel sounds present, abdomen soft and non-tender, no masses or organomegaly noted. - ASA Grade Assessment: II - A patient with mild systemic disease. After I obtained informed consent, the scope was passed under direct vision. Throughout the procedure, the patient's blood pressure, pulse, and oxygen saturations were monitored continuously. The scope was introduced through the anus and advanced to the terminal ileum. The colonoscopy was performed without difficulty. The patient tolerated the procedure well. The quality of the bowel preparation was good. Findings: The perianal and digital rectal examinations were normal. Pertinent negatives include normal sphincter tone and no palpable rectal lesions. The terminal ileum appeared normal. Many small and large-mouthed diverticula were found in the sigmoid colon. The retroflexed view of the distal rectum and anal verge was normal and showed no anal or rectal abnormalities. Impression: - The examined portion of the ileum was normal. - Diverticulosis in the sigmoid colon. - The distal rectum and anal verge are normal on retroflexion view. - No specimens collected. Recommendation: - Repeat colonoscopy in 10 years for screening purposes. - Return to referring physician as previously scheduled. - Discharge patient to home. Porsha Lee DO 08/18/2017 9:14:57 AM This report has been signed electronically. Note Initiated On: 08/18/2017 8:47 AM Number of Addenda: 0 I attest to the content of the Intraoperative Record and orders documented therein, exceptions below {[id number]}
[2017-08-18 09:40] VITALS: BP 134/83; PULSE 68; O2SAT 100
--- NOTE | 2017-08-18 09:49 | Anesthesiology Progress Note ---
Anesthesia Post Op Note Date & Time August 18, 2017 at 09:49 Vital Signs Pain Intensity: 0 Vital Signs Past 12 Hours Date Time Temp Pulse Resp B/P (MAP) Pulse Ox O2 Delivery O2 Flow Rate FiO2 08/18/17 09:25 64 18 129/82 (98) 98 Room Air 08/18/17 09:10 88 12 99/57 (71) 98 Room Air 08/18/17 08:11 36.5 94 18 128/89 (102) 96 Room Air Notes Mental Status: alert / awake / arousable, participated in evaluation Pt Amnestic to Procedure: Yes Nausea / Vomiting: adequately controlled Pain: adequately controlled Airway Patency, RR, SpO2: stable & adequate BP & HR: stable & adequate Hydration State: stable & adequate Anesthetic Complications: no major complications apparent
== END | disposition home or self-care (01) ==
LOC: C.GI 07:34
PROVIDERS: ATTEND Internal Medicine
DX: Z12.11 Encounter for screening for malignant neoplasm of colon (principal); K57.30 Diverticulosis of large intestine without perforation or abscess without bleeding; F41.9 Anxiety disorder, unspecified; E78.00 Pure hypercholesterolemia, unspecified; E78.5 Hyperlipidemia, unspecified; M19.90 Unspecified osteoarthritis, unspecified site; I10 Essential (primary) hypertension; F17.200 Nicotine dependence, unspecified, uncomplicated; Z90.710 Acquired absence of both cervix and uterus; Z90.89 Acquired absence of other organs; Z79.82 Long term (current) use of aspirin; Z79.899 Other long term (current) drug therapy; Z87.440 Personal history of urinary (tract) infections

== ENCOUNTER 2025-04-03 15:44 | Observation (INO) ==
--- NOTE | 2025-04-03 16:00 | Emergency Department Note ---
Impression & Plan Diplopia, Anisocoria ED Provider Note NAME: NEETA PARKS AGE: 74 SEX: F : 1950 ARRIVES VIA: Walk-In INFORMANT: Patient, ED PROVIDER(S): Abiodun Velazquez MD CHIEF COMPLAINT: Diplopia MEDICAL DECISION MAKING: Patient presents with the above intermittently sober 3 episodes in the last several days twice being today. IV was established and blood work was obtained along with CT head and CT angiography of the head and neck. No head or neck pain. Nonfocal neurologic exam and no evidence of obvious gaze palsy. The patient does have left greater than right anisocoria but both pupils react appropriately. The patient's blood work shows a normal white count hemoglobin and platelet count kidney function is unremarkable. Urinalysis does not show evidence of obvious infection. Blood noted. Alcohol 32 Lyme's negative. The patient's chest x-ray CT head and CT angiography of the head and neck are negative. Chronic right mastoiditis. The patient states that she did have some sort of tumor that was removed from this right side before by ENT. Patient does not have any pain or swelling to the area. I did speak with Dr. Zavala with [facility] who recommended that the patient be admitted for formal TIA stroke workup. MRI was ordered. Patient initially was hesitant to stay in hospital but after further discussion was amenable. I did speak with the hospital service Dr. Beck and the patient was admitted to the medicine service. Patient given full dose aspirin. MRI pending at the time of admission. Discussion w/ other healthcare providers: Dr. Lucas Cerws neurology Dr. Beck inpatient medicine service Prior /Outside records reviewed: None Differential diagnosis: Infection, dehydration, metabolic abnormality, hypo/hyperglycemia, electrolyte imbalance, anemia, UTI, pneumonia, thyroid dysfunction among others were considered. Diagnostics, as interpreted by me: ECG: Normal sinus rhythm, rate of 85, normal intervals, normal axis no ST elevations T wave version lead III. Cardiac monitoring: An order was placed for continuous cardiac monitoring. The monitor shows a rate of 87 with sinus rhythm. Patient was placed on pulse oximetry Medical decision rules: None Imaging studies: I informally interpreted the patient's chest x-ray does not show obvious pneumonia with formal report to follow. HPI: Patient presents due to concern for double vision. She reports that she initially had an episode several days ago. Patient states that this lasted for several minutes and it resolved. The patient thought that maybe it was from staring at a computer screen too long. The patient states though that today she was visiting her sister in a care facility and states that she thought maybe she was having a panic attack and thought that that was the cause of having another episode of double vision. She denies any head or neck pain no falls or trauma. She denies any numbness ting or focal weakness no slurred speech or facial droop. She reports that her relative did have an aneurysm in his 60s. She states that she had another episode this evening. She states that she did take a Xanax and did drink some wine but she had done this because she thought she was having a panic attack earlier. Because of this third episode she presented here today. She states that this occurred just by watching television. She does believe that it is [id number] double vision. She denies any vision loss. She denies any history of stroke mini stroke or seizure. She does not take any blood thinner or antiplatelet. Patient states that her vision is currently clear. She does wear glasses. PAST MEDICAL HISTORY: See Below PAST SURGICAL HISTORY: See Below SOCIAL HISTORY: See Below HOME MEDICATIONS: See Below ALLERGIES: See Below VITALS: See Below PHYSICAL EXAMINATION: GENERAL: NAD, non-toxic. Wearing glasses. EYE EXAM: Normal conjunctiva. PERRL, slight left greater than right anisocoria and EOM's grossly intact w/o pain. Gross vision intact. No obvious gaze palsy. No periorbital swelling or proptosis. OROPHARYNX: Moist mucus membranes, grossly normal dentition. NECK: Trachea midline, no stridor. No carotid bruits appreciated. LUNGS: Clear to auscultation. Normal chest wall mechanics. HEART: NSR, no MRG. ABDOMEN: Abdomen soft, non-tender, no masses, no rebound or guarding. BACK: No CVA TTP. SKIN: No rashes and no bruising. UPPER EXTREMITIES: Upper extremities are grossly normal. LOWER EXTREMITIES: Grossly normal, no edema. NEURO EXAM: Awake and alert, follows commands, no obvious facial asymmetry, normal speech, moves all 4 extremities. Good [id number], no drift no sensory deficits. Past Med/Surg History Problem List (Updated 04/03/25 @ 23:40 by Abiodun Velazquez MD) Anisocoria (Acute) Diplopia (Acute) Double vision Skin lesion Cystocele with prolapse Hypercholesteremia Lichen sclerosus et atrophicus Hypothyroidism Graves disease Lichen sclerosus et atrophicus HTN (hypertension) (Chronic) Medical History H/O herpes zoster Surgical History H/O: hysterectomy 02/02/07-Vaginal, with anterior and posterior repair (Uterus and Cervix) History of dilation and curettage History of appendectomy Family History Denies family history of Ovarian cancer Breast cancer Colorectal cancer Social History Smoking Status: Current every day smoker Tobacco Type: Cigarettes Do You Dip or Chew Tobacco: No; Hx Alcohol Use: Yes Hx Substance Use: No Preferred Language: Khmer marital status: Feels Safe at Home: Yes Dental Care, Regularly: Yes Seatbelt Use: always Sunscreen Use: Yes Allergies Allergies Allergy/AdvReac Type Severity Reaction Status Date / Time No Known Allergies Allergy Verified 04/12/24 09:08 Home Meds Home Medications Medication Instructions Recorded Confirmed alprazolam 0.25 mg tablet 0.25 mg PO BID PRN Panic Attack(S) 04/03/25 04/03/25 amlodipine 5 mg tablet 5 mg PO DAILY 04/03/25 04/03/25 aspirin 81 mg tablet,delayed 81 mg PO DAILYBL 04/03/25 04/03/25 release atorvastatin 20 mg tablet 20 mg PO DAILY 04/03/25 04/03/25 calcium 600 mg (as 1 tab PO DAILYBL 04/03/25 04/03/25 carbonate)-vitamin D3 10 mcg (400 unit) tablet (Calcium 600 + D(3)) escitalopram oxalate 10 mg tablet 10 mg PO DAILY 04/03/25 04/03/25 levothyroxine 100 mcg tablet 100 mcg PO DAILY 04/03/25 04/03/25 (Synthroid) lisinopril 10 mg tablet 10 mg PO HS 04/03/25 04/03/25 lisinopril 20 mg tablet 20 mg PO DAILY 04/03/25 04/03/25 metoprolol succinate 50 mg 50 mg PO DAILY 04/03/25 04/03/25 tablet,extended release 24 hr multivitamin with minerals 1 tab PO DAILYBL 04/03/25 04/03/25 Results & Data (ED) Vital Signs Vital Signs - 24 hr 04/03/25 15:53 04/03/25 16:53 04/03/25 16:53 Temperature 36.5 C Temperature Source Temporal Artery Scan Pulse Rate 104 H 88 Pulse Rate [Apical] 88 Respiratory Rate 18 19 17 Respiratory Effort / Characteristics Non-Labored Spontaneous Respiratory Depth Normal Blood Pressure 113/70 Blood Pressure [Left Arm] 133/69 Blood Pressure Mean 84 Blood Pressure Mean [Left Arm] 90 Pulse Oximetry 97 95 95 Oxygen Delivery Method Room Air Room Air Room Air Sepsis Recent Fever Within 48 Hours No Sepsis New/Unexplained Change in Mental Status No Sepsis Action Taken by Nursing No Action Required 04/03/25 17:36 04/03/25 18:49 04/03/25 20:00 Temperature Temperature Source Pulse Rate 80 Pulse Rate [Apical] 89 90 Respiratory Rate 19 18 Respiratory Effort / Characteristics Respiratory Depth Blood Pressure Blood Pressure [Left Arm] 140/83 140/83 Blood Pressure Mean Blood Pressure Mean [Left Arm] 102 102 Pulse Oximetry 97 96 Oxygen Delivery Method Room Air Room Air Sepsis Recent Fever Within 48 Hours Sepsis New/Unexplained Change in Mental Status Sepsis Action Taken by Nursing 04/03/25 21:38 Temperature Temperature Source Pulse Rate 87 Pulse Rate [Apical] Respiratory Rate Respiratory Effort / Characteristics Respiratory Depth Blood Pressure Blood Pressure [Left Arm] Blood Pressure Mean Blood Pressure Mean [Left Arm] Pulse Oximetry Oxygen Delivery Method Sepsis Recent Fever Within 48 Hours Sepsis New/Unexplained Change in Mental Status Sepsis Action Taken by [facility] Medications Current Medication List: was personally reviewed by me Laboratory Data Attestation: I reviewed the patient's lab results. 04/03/25 16:50 04/03/25 16:50 Lab Results 04/03/25 04/03/25 04/03/25 Range/Units 16:15 16:50 17:01 WBC 5.79 (4.8-10.8) K/ul RBC 4.03 L (4.20-5.40) M/uL Hgb 12.0 (12.0-16.0) g/dL POC Hgb 12.2 (12.0-16.0) g/dl Hct 35.8 L (37.0-47.0) % POC Hct 36 L (37-47) % MCV 88.8 (80.0-100.0) fL MCH 29.8 (25.0-34.0) pg MCHC 33.5 (32.0-36.0) g/dL RDW Std Deviation 40.1 (36.4-46.3) fL RDW Coeff of [place] 12.2 (11.5-14.5) % Plt Count 288 (130-400) K/uL MPV 8.5 L (9.4-12.4) fL Immature Gran % (Auto) 0.3 % Neut % (Auto) 65.4 % Lymph % (Auto) 24.5 % [place] % (Auto) 8.5 % Eos % (Auto) 1.0 % Baso % (Auto) 0.3 % Neut # (Auto) 3.78 (1.40-6.50) K/uL Lymph # (Auto) 1.42 (1.20-3.40) K/uL [place] # (Auto) 0.49 (0.11-0.59) K/uL Eos # (Auto) 0.06 (0.00-0.50) K/uL Baso # (Auto) 0.02 (0.00-0.20) K/uL Immature Gran # (Auto) 0.02 (0.01-0.20) K/uL POC Sodium 136 (135-144) mmol/L Sodium 136 (136-145) mmol/L POC Potassium 4.1 (3.3-5.0) mmol/L Potassium 4.3 (3.5-5.1) mmol/L POC Chloride 101 (101-112) mmol/L Chloride 102 (98-107) mmol/L Carbon Dioxide 24 (21-32) mmol/L POC Total CO2 21 L (24-31) mmol/L Anion Gap 10 (3-11) POC Anion Gap 19.0 (16-25) mmol/L POC BUN 23 H (7-18) mg/dl BUN 23 (6-23) mg/dl Creatinine 1.03 (0.6-1.2) mg/dl POC Creatinine 1.2 (0.6-1.3) mg/dl Est Cr Clr Drug Dosing 46.5 ml/min eGFR 56.70 BUN/Creatinine Ratio 22.3 H (10-20) Glucose 90 (70-99(Fasting)) mg/dl POC Glucose (other) 87 (70-99) mg/dl Calcium 9.9 (8.6-10.3) mg/dl POC Ioniz Calcium [place] 1.27 (1.12-1.32) mmol/l Magnesium 2.1 (1.7-2.4) mg/dl Total Bilirubin 0.3 (0.2-1.0) mg/dl AST 17 (13-39) U/L ALT 11 (7-52) U/L Alkaline Phosphatase 70 (34-104) U/L Total Protein 6.7 (6.0-8.3) gm/dl Albumin 3.8 (3.4-5.0) gm/dl Globulin 2.9 (2.5-4.0) gm/dl Albumin/Globulin Ratio 1.3 (0.9-2) TSH 1.883 (0.300-4.500) uIu/ml Urine Color Urine Appearance (Clear) Urine pH (4.5-7.5) Ur Specific [place] (1.000-1.030) Urine Protein (Negative) Urine Glucose (UA) (Negative) Urine Ketones (Negative) Urine Blood (Negative) Urine Nitrite (Negative) Urine Bilirubin (Negative) Urine Urobilinogen (Negative) Ur Leukocyte Esterase (Negative) Urine WBC (Auto) (0-5) /hpf Urine RBC (Auto) (0-2) /hpf U Hyaline Cast (Auto) (0-2) /lpf U Epithel Cells (Auto) (0-2) /hpf Urine Bacteria (Auto) (None Seen) Urine Comment Ethyl Alcohol mg/dL 32.1 H (<10.0) mg/dl Lyme Disease Screen Negative (Negative) 04/03/25 Range/Units 21:12 WBC (4.8-10.8) K/ul RBC (4.20-5.40) M/uL Hgb (12.0-16.0) g/dL POC Hgb (12.0-16.0) g/dl Hct (37.0-47.0) % POC Hct (37-47) % MCV (80.0-100.0) fL MCH (25.0-34.0) pg MCHC (32.0-36.0) g/dL RDW Std Deviation (36.4-46.3) fL RDW Coeff of [place] (11.5-14.5) % Plt Count (130-400) K/uL MPV (9.4-12.4) fL Immature Gran % (Auto) % Neut % (Auto) % Lymph % (Auto) % [place] % (Auto) % Eos % (Auto) % Baso % (Auto) % Neut # (Auto) (1.40-6.50) K/uL Lymph # (Auto) (1.20-3.40) K/uL [place] # (Auto) (0.11-0.59) K/uL Eos # (Auto) (0.00-0.50) K/uL Baso # (Auto) (0.00-0.20) K/uL Immature Gran # (Auto) (0.01-0.20) K/uL POC Sodium (135-144) mmol/L Sodium (136-145) mmol/L POC Potassium (3.3-5.0) mmol/L Potassium (3.5-5.1) mmol/L POC Chloride (101-112) mmol/L Chloride (98-107) mmol/L Carbon Dioxide (21-32) mmol/L POC Total CO2 (24-31) mmol/L Anion Gap (3-11) POC Anion Gap (16-25) mmol/L POC BUN (7-18) mg/dl BUN (6-23) mg/dl Creatinine (0.6-1.2) mg/dl POC Creatinine (0.6-1.3) mg/dl Est Cr Clr Drug Dosing ml/min eGFR BUN/Creatinine Ratio (10-20) Glucose (70-99(Fasting)) mg/dl POC Glucose (other) (70-99) mg/dl Calcium (8.6-10.3) mg/dl POC Ioniz Calcium [place] (1.12-1.32) mmol/l Magnesium (1.7-2.4) mg/dl Total Bilirubin (0.2-1.0) mg/dl AST (13-39) U/L ALT (7-52) U/L Alkaline Phosphatase (34-104) U/L Total Protein (6.0-8.3) gm/dl Albumin (3.4-5.0) gm/dl Globulin (2.5-4.0) gm/dl Albumin/Globulin Ratio (0.9-2) TSH (0.300-4.500) uIu/ml Urine Color Yellow Urine Appearance Clear (Clear) Urine pH 6.0 (4.5-7.5) Ur Specific [place] > 1.045 H (1.000-1.030) Urine Protein Negative (Negative) Urine Glucose (UA) Negative (Negative) Urine Ketones Trace H (Negative) Urine Blood 2+ H (Negative) Urine Nitrite Negative (Negative) Urine Bilirubin Negative (Negative) Urine Urobilinogen Negative (Negative) Ur Leukocyte Esterase Negative (Negative) Urine WBC (Auto) 0-5 (0-5) /hpf Urine RBC (Auto) 11-20 H (0-2) /hpf U Hyaline Cast (Auto) 0-2 (0-2) /lpf U Epithel Cells (Auto) 0-2 (0-2) /hpf Urine Bacteria (Auto) None Seen (None Seen) Urine Comment Ethyl Alcohol mg/dL (<10.0) mg/dl Lyme Disease Screen (Negative) Administered Medications Discontinued Medications Alprazolam (Alprazolam 0.25 Mg Tablet) 0.25 mg PO NOW STA Stop: 04/03/25 20:53 Last Admin: 04/03/25 21:01 Dose: 0.25 mg Documented By: [id number] Aspirin (Aspirin Chew 324 Mg) 324 mg PO NOW STA Stop: 04/03/25 20:17 Last Admin: 04/03/25 21:01 Dose: 324 mg Documented By: [id number] Sodium Chloride (Nss) 500 mls @ 999 mls/hr IV .Q31M HARSHA Stop: 04/03/25 17:00 Last Infusion: 04/03/25 17:26 Dose: Infused Documented By: Admin: 04/03/25 16:54 Dose: 999 mls/hr Documented By: TERRENCE Ioversol (Optiray 320 125ml) 118 ml IV ONCE ONE Stop: 04/03/25 17:21 Last Admin: 04/03/25 17:21 Dose: 118 ml Documented By: [email or web address] Lisinopril (Lisinopril 10 Mg Tab) 10 mg PO NOW STA Stop: 04/03/25 20:53 Last Admin: 04/03/25 21:01 Dose: 10 mg Documented By: [id number] Nicotine (Nicotine 7 Mg/24 Hr Tdsy) 1 patch TD NOW STA Stop: 04/03/25 20:53 Last Admin: 04/03/25 21:01 Dose: 1 patch Documented By: [id number] Imaging Data Radiologist's Impression: Chest X-Ray 04/03/25 16:18 EXAM: Radiograph of the Chest 1 View INDICATION: Trauma TECHNIQUE: Frontal view of the chest. COMPARISON: No relevant prior studies available. FINDINGS: Lungs and pleural spaces: No consolidation or pulmonary edema. No pleural effusion or pneumothorax. Heart: Shape and configuration within normal limits allowing for technique. Mediastinum: Normal contour. Bones/joints: No fracture, erosion or dislocation. Soft tissues: No abnormality noted. No radiopaque foreign body noted. Vasculature: Ectatic aorta. Upper abdomen: No abnormality noted. IMPRESSION: No acute cardiopulmonary disease. ACT 112: N/A Electronically signed by Sylvie Munoz 04-03-2025 6:[address] 04/03/25 16:18 EXAM: CT Head Without Intravenous Contrast INDICATION: Recurrent double vision. TECHNIQUE: Axial computed tomography images of the head/brain without intravenous contrast. Sagittal and/or coronal reformats are provided. Sagittal and coronal reformatted images were created and reviewed. This CT exam was performed using one or more of the following dose reduction techniques: automated exposure control, adjustment of the mA and/or kV according to patient size, and/or use of iterative reconstruction technique. COMPARISON: 04/03/2019 FINDINGS: Limitations: None. Brain and extra-axial spaces: There is age appropriate cortical atrophy and chronic ischemic periventricular white matter hypodensity. No acute infarct, hemorrhage or mass noted. Bones/joints: No acute changes. Soft tissues: No acute abnormality noted. Vasculature: No acute abnormality noted. Lymph nodes: Small incidental parotid lymph nodes. Sinuses: No layering fluid in the visualized portions of the paranasal sinuses. Mastoid air cells: Moderate right mastoid thickening. Orbits: No acute abnormality noted. IMPRESSION: 1. Cerebral atrophy. No acute changes. 2. Chronic right mastoiditis. ACT 112: N/A Electronically signed by Sylvie Munoz 04-03-2025 7:37 PM Head CTA 04/03/25 16:18 EXAM: CT Angiography Head and Neck With Intravenous Contrast INDICATION: Intermittent double vision. TECHNIQUE: [place]/head and neck CT angiography protocol performed with intravenous contrast. Sagittal and coronal reformatted images were created and reviewed. This CT exam was performed using one or more of the following dose reduction techniques: automated exposure control, adjustment of the mA and/or kV according to patient size, and/or use of iterative reconstruction technique. MIP reconstructed images were created and reviewed. COMPARISON: None. FINDINGS: HEAD: Right anterior cerebral artery: No abnormality noted. No occlusion or significant stenosis. Anterior communicating artery is present. No aneurysm. Right middle cerebral artery: No abnormality noted. No occlusion or significant stenosis. No aneurysm. Right posterior cerebral artery: No abnormality noted. No occlusion or significant stenosis. No aneurysm. Right intracranial internal carotid artery: Mild diffuse plaque. No significant stenosis. No dissection or occlusion. Right intracranial vertebral artery: No abnormality noted. No significant stenosis. No dissection or occlusion. Left anterior cerebral artery: No abnormality noted. No occlusion or significant stenosis. No aneurysm. Left middle cerebral artery: No abnormality noted. No occlusion or significant stenosis. No aneurysm. Left posterior cerebral artery: No abnormality noted. No occlusion or significant stenosis. No aneurysm. Left intracranial internal carotid artery: Mild diffuse plaque. No significant stenosis. No dissection or occlusion. Left intracranial vertebral artery: No abnormality noted. No significant stenosis. No dissection or occlusion. Basilar artery: No abnormality noted. No occlusion or significant stenosis. No aneurysm. Other vasculature: No vascular malformation. NECK: Right common carotid artery: No abnormality noted. No significant stenosis. No dissection or occlusion. Right extracranial internal carotid artery: Mild calcific plaque at the bulb. No significant stenosis. No dissection or occlusion. Right external carotid artery: No abnormality noted. No occlusion. Right extracranial vertebral artery: No abnormality noted. No significant stenosis. No dissection or occlusion. Left common carotid artery: No abnormality noted. No significant stenosis. No dissection or occlusion. Left extracranial internal carotid artery: Mild calcific plaque at the bulb. No significant stenosis. No dissection or occlusion. Left external carotid artery: No abnormality noted. No occlusion. Left extracranial vertebral artery: No abnormality noted. No significant stenosis. No dissection or occlusion. Lung apices: No acute abnormality noted. HEAD and NECK: Bones/joints: No significant abnormality. Soft tissues: No abnormality noted. CAROTID STENOSIS REFERENCE USING NASCET CRITERIA: % ICA stenosis = (1 - narrowest ICA diameter/diameter of distal cervical ICA) x 100. Mild - <50% stenosis. Moderate - 50-69% stenosis. Severe - 70-94% stenosis. Near occlusion - 95-99% stenosis. Occluded - 100% stenosis. IMPRESSION: 1. No large vessel occlusion, aneurysm or dissection in the head or neck. 2. Chronic right mastoiditis. ACT 112: N/A Electronically signed by Sylvie Munoz 04-03-2025 7:37 PM Neck CTA 04/03/25 16:18 EXAM: CT Angiography Head and Neck With Intravenous Contrast INDICATION: Intermittent double vision. TECHNIQUE: [place]/head and neck CT angiography protocol performed with intravenous contrast. Sagittal and coronal reformatted images were created and reviewed. This CT exam was performed using one or more of the following dose reduction techniques: automated exposure control, adjustment of the mA and/or kV according to patient size, and/or use of iterative reconstruction technique. MIP reconstructed images were created and reviewed. COMPARISON: None. FINDINGS: HEAD: Right anterior cerebral artery: No abnormality noted. No occlusion or significant stenosis. Anterior communicating artery is present. No aneurysm. Right middle cerebral artery: No abnormality noted. No occlusion or significant stenosis. No aneurysm. Right posterior cerebral artery: No abnormality noted. No occlusion or significant stenosis. No aneurysm. Right intracranial internal carotid artery: Mild diffuse plaque. No significant stenosis. No dissection or occlusion. Right intracranial vertebral artery: No abnormality noted. No significant stenosis. No dissection or occlusion. Left anterior cerebral artery: No abnormality noted. No occlusion or significant stenosis. No aneurysm. Left middle cerebral artery: No abnormality noted. No occlusion or significant stenosis. No aneurysm. Left posterior cerebral artery: No abnormality noted. No occlusion or significant stenosis. No aneurysm. Left intracranial internal carotid artery: Mild diffuse plaque. No significant stenosis. No dissection or occlusion. Left intracranial vertebral artery: No abnormality noted. No significant stenosis. No dissection or occlusion. Basilar artery: No abnormality noted. No occlusion or significant stenosis. No aneurysm. Other vasculature: No vascular malformation. NECK: Right common carotid artery: No abnormality noted. No significant stenosis. No dissection or occlusion. Right extracranial internal carotid artery: Mild calcific plaque at the bulb. No significant stenosis. No dissection or occlusion. Right external carotid artery: No abnormality noted. No occlusion. Right extracranial vertebral artery: No abnormality noted. No significant stenosis. No dissection or occlusion. Left common carotid artery: No abnormality noted. No significant stenosis. No dissection or occlusion. Left extracranial internal carotid artery: Mild calcific plaque at the bulb. No significant stenosis. No dissection or occlusion. Left external carotid artery: No abnormality noted. No occlusion. Left extracranial vertebral artery: No abnormality noted. No significant stenosis. No dissection or occlusion. Lung apices: No acute abnormality noted. HEAD and NECK: Bones/joints: No significant abnormality. Soft tissues: No abnormality noted. CAROTID STENOSIS REFERENCE USING NASCET CRITERIA: % ICA stenosis = (1 - narrowest ICA diameter/diameter of distal cervical ICA) x 100. Mild - <50% stenosis. Moderate - 50-69% stenosis. Severe - 70-94% stenosis. Near occlusion - 95-99% stenosis. Occluded - 100% stenosis. IMPRESSION: 1. No large vessel occlusion, aneurysm or dissection in the head or neck. 2. Chronic right mastoiditis. ACT 112: N/A Electronically signed by Sylvie Munoz 04-03-2025 7:37 PM Discharge Plan Visit Data Chief Complaint: Visual Disturbance Stated Complaint: DOUBLE VISION, ED Provider: Abiodun Velazquez Discharge Problem: Diplopia, Anisocoria Patient Disposition: Admitted As Inpatient Condition: Good Prescriptions Prescriptions: No Action atorvastatin 20 mg tablet 20 mg PO DAILY metoprolol succinate 50 mg tablet extended release 24 hr 50 mg PO DAILY lisinopril 20 mg tablet 20 mg PO DAILY amlodipine 5 mg tablet 5 mg PO DAILY levothyroxine [Synthroid] 100 mcg tablet 100 mcg PO DAILY alprazolam 0.25 mg tablet 0.25 mg PO BID PRN (Reason: Panic Attack(S)) lisinopril 10 mg tablet 10 mg PO HS escitalopram oxalate 10 mg tablet 10 mg PO DAILY aspirin [Aspir-81] 81 mg Tablet,Delayed Release (Dr/Ec) 81 mg PO DAILYBL multivitamin with minerals Tablet 1 tab PO DAILYBL calcium carbonate-vitamin D3 [Calcium 600 + D(3)] 600 mg-10 mcg (400 unit) Tablet 1 tab PO DAILYBL Referrals Referrals: Abimael Matias MD [Primary Care Provider] -
[2025-04-03] MEDS: SODIUM CHLORIDE 0.9% 500 ML IV SCH (16:54)
[2025-04-03 17:18] LABS: Hematocrit (blood only) 35.8 % (37.0-47.0); Hemoglobin 12.0 g/dL (12.0-16.0); Immature Granulocytes # (auto) 0.02 K/uL (0.01-0.20); Immature Granulocytes % (auto) 0.3 %; Mean Corpuscular Hemoglobin 29.8 pg (25.0-34.0); Mean Corpuscular Volume 88.8 fL (80.0-100.0); Platelet Count 288 K/uL (130-400); RDW Standard Deviation 40.1 fL (36.4-46.3); Red Blood Count 4.03 M/uL (4.20-5.40); White Blood Count 5.79 K/ul (4.8-10.8)
[2025-04-03] MEDS: OPTIRAY 320 125ml IV ONE (17:21)
[2025-04-03 17:36] LABS: Alanine Aminotransferase 11.0 U/L (7-52); Albumin Globulin Ratio 1.3 (0.9-2); Albumin Level 3.8 gm/dl (3.4-5.0); Alkaline Phosphatase 70.0 U/L (34-104); Anion Gap 10.0 (3-11); Bilirubin,Total 0.3 mg/dl (0.2-1.0); Blood Urea Nitrogen 23.0 mg/dl (6-23); Calcium 9.9 mg/dl (8.6-10.3); Carbon Dioxide 24.0 mmol/L (21-32); Chloride 102.0 mmol/L (98-107); Creatinine Clr Calc Pharmacy 46.5 ml/min; Globulin 2.9 gm/dl (2.5-4.0); Glucose 90.0 mg/dl (70-99(Fasting)); Magnesium 2.1 mg/dl (1.7-2.4); Potassium 4.3 mmol/L (3.5-5.1); Sodium 136.0 mmol/L (136-145); Total Protein 6.7 gm/dl (6.0-8.3)
[2025-04-03 17:52] LABS: Thyroid Stimulating Hormone 1.883 uIu/ml (0.300-4.500)
--- NOTE | 2025-04-03 18:43 | XRay Report ---
EXAM: Radiograph of the Chest 1 View INDICATION: Trauma TECHNIQUE: Frontal view of the chest. COMPARISON: No relevant prior studies available. FINDINGS: Lungs and pleural spaces: No consolidation or pulmonary edema. No pleural effusion or pneumothorax. Heart: Shape and configuration within normal limits allowing for technique. Mediastinum: Normal contour. Bones/joints: No fracture, erosion or dislocation. Soft tissues: No abnormality noted. No radiopaque foreign body noted. Vasculature: Ectatic aorta. Upper abdomen: No abnormality noted. IMPRESSION: No acute cardiopulmonary disease. ACT 112: N/A Electronically signed by Sylvie Munoz 04-03-2025 6:42 PM
--- NOTE | 2025-04-03 19:40 | CT Scan Report ---
EXAM: CT Head Without Intravenous Contrast INDICATION: Recurrent double vision. TECHNIQUE: Axial computed tomography images of the head/brain without intravenous contrast. Sagittal and/or coronal reformats are provided. Sagittal and coronal reformatted images were created and reviewed. This CT exam was performed using one or more of the following dose reduction techniques: automated exposure control, adjustment of the mA and/or kV according to patient size, and/or use of iterative reconstruction technique. COMPARISON: 04/03/2019 FINDINGS: Limitations: None. Brain and extra-axial spaces: There is age appropriate cortical atrophy and chronic ischemic periventricular white matter hypodensity. No acute infarct, hemorrhage or mass noted. Bones/joints: No acute changes. Soft tissues: No acute abnormality noted. Vasculature: No acute abnormality noted. Lymph nodes: Small incidental parotid lymph nodes. Sinuses: No layering fluid in the visualized portions of the paranasal sinuses. Mastoid air cells: Moderate right mastoid thickening. Orbits: No acute abnormality noted. IMPRESSION: 1. Cerebral atrophy. No acute changes. 2. Chronic right mastoiditis. ACT 112: N/A Electronically signed by Sylvie Munoz 04-03-2025 7:37 PM
--- NOTE | 2025-04-03 19:40 | CT Scan Report ---
EXAM: CT Angiography Head and Neck With Intravenous Contrast INDICATION: Intermittent double vision. TECHNIQUE: [place]/head and neck CT angiography protocol performed with intravenous contrast. Sagittal and coronal reformatted images were created and reviewed. This CT exam was performed using one or more of the following dose reduction techniques: automated exposure control, adjustment of the mA and/or kV according to patient size, and/or use of iterative reconstruction technique. MIP reconstructed images were created and reviewed. COMPARISON: None. FINDINGS: HEAD: Right anterior cerebral artery: No abnormality noted. No occlusion or significant stenosis. Anterior communicating artery is present. No aneurysm. Right middle cerebral artery: No abnormality noted. No occlusion or significant stenosis. No aneurysm. Right posterior cerebral artery: No abnormality noted. No occlusion or significant stenosis. No aneurysm. Right intracranial internal carotid artery: Mild diffuse plaque. No significant stenosis. No dissection or occlusion. Right intracranial vertebral artery: No abnormality noted. No significant stenosis. No dissection or occlusion. Left anterior cerebral artery: No abnormality noted. No occlusion or significant stenosis. No aneurysm. Left middle cerebral artery: No abnormality noted. No occlusion or significant stenosis. No aneurysm. Left posterior cerebral artery: No abnormality noted. No occlusion or significant stenosis. No aneurysm. Left intracranial internal carotid artery: Mild diffuse plaque. No significant stenosis. No dissection or occlusion. Left intracranial vertebral artery: No abnormality noted. No significant stenosis. No dissection or occlusion. Basilar artery: No abnormality noted. No occlusion or significant stenosis. No aneurysm. Other vasculature: No vascular malformation. NECK: Right common carotid artery: No abnormality noted. No significant stenosis. No dissection or occlusion. Right extracranial internal carotid artery: Mild calcific plaque at the bulb. No significant stenosis. No dissection or occlusion. Right external carotid artery: No abnormality noted. No occlusion. Right extracranial vertebral artery: No abnormality noted. No significant stenosis. No dissection or occlusion. Left common carotid artery: No abnormality noted. No significant stenosis. No dissection or occlusion. Left extracranial internal carotid artery: Mild calcific plaque at the bulb. No significant stenosis. No dissection or occlusion. Left external carotid artery: No abnormality noted. No occlusion. Left extracranial vertebral artery: No abnormality noted. No significant stenosis. No dissection or occlusion. Lung apices: No acute abnormality noted. HEAD and NECK: Bones/joints: No significant abnormality. Soft tissues: No abnormality noted. CAROTID STENOSIS REFERENCE USING NASCET CRITERIA: % ICA stenosis = (1 - narrowest ICA diameter/diameter of distal cervical ICA) x 100. Mild - <50% stenosis. Moderate - 50-69% stenosis. Severe - 70-94% stenosis. Near occlusion - 95-99% stenosis. Occluded - 100% stenosis. IMPRESSION: 1. No large vessel occlusion, aneurysm or dissection in the head or neck. 2. Chronic right mastoiditis. ACT 112: N/A Electronically signed by Sylvie Munoz 04-03-2025 7:37 PM
[2025-04-03] MEDS: ASPIRIN CHEW 324 MG PO STA (21:01)
[2025-04-03] MEDS: NICOTINE 7 MG/24 HR TDSY TD STA (21:01)
[2025-04-03 21:30] LABS: Appearance Urine Clear (Clear); Bacteria Urine Automated None Seen (None Seen); Cast Urine Automated 0-2 /lpf (0-2); Epithelial Cell Urine Auto 0-2 /hpf (0-2); Glucose Urine UA Negative (Negative); WBC Urine Automated 0-5 /hpf (0-5)
--- NOTE | 2025-04-03 23:30 | History & Physical Report ---
Date of Service April 03, 2025 Assessment & Plan (1) Double vision: Plan: 74-year-old female with past medical history significant for hypothyroidism, hyperlipidemia, Graves' disease, hypercholesterolemia, parotid tumor, CKD stage III, lichen sclerosis, history of tobacco use, general anxiety disorder presents with double vision. Couple of days ago patient was working on computer screen for some time and when she got up she noticed double vision. She walked for 10 minutes and after that the vision improved. She has to close one eye to see better. Today morning she went to see her sister in custodial. She has history of panic attacks. When she saw her sister she felt getting a panic attack. At the time again she had double vision and she drove back home. At this time it lasted for 5 to 10 minutes. Again around 2 PM she started to get d ouble vision again which lasted for about same amount of time and when she decided come to the hospital. Currently vision is okay. She is seeing okay. Denies any headache. No dizziness. No runny nose or sore throat. No earache. Speech is okay. No difficulty swallowing. No chest pain. No shortness of breath. No weakness or tingliness in extremities. No nausea. No abdominal pain. Somewhat constipated. Micturating okay. Hemodynamics are okay. Afebrile. Currently resting comfortably. Double vision Transient 3 times last 2 days 2 times today Currently vision is okay CT head shows chronic right mastoiditis otherwise unremarkable CTA head and neck unremarkable ER spoke with [facility] neurology on-call and advised for aspirin and MRI scan to rule out TIA Will do stroke protocol Neurochecks every 4 hours for now Continue home aspirin and statin for now follow lipid profile and A1c levels Monitor on telemetry Will get echo PT OT Neurology consult in a.m. for further recommendations chronic mastoiditis? needs ent followup inpatinet vs outpatient Hypothyroidism On Synthyroid Hypertension On lisinopril and amlodipine Will monitor Hyperlipidemia On statin Will follow lipid profile Panic attacks Generalized anxiety disorder On Xanax as needed On Lexapro DVT prophylaxis SCDs for now Disposition Telemetry Full code. History of Present Illness Chief Complaint: Double vision Primary Care Provider: Abimael Matias MD 74-year-old female with past medical history significant for hypothyroidism, hyperlipidemia, Graves' disease, hypercholesterolemia, parotid tumor, CKD stage III, lichen sclerosis, history of tobacco use, general anxiety disorder presents with double vision. Couple of days ago patient was working on computer screen for some time and when she got up she noticed double vision. She walked for 10 minutes and after that the vision improved. She has to close one eye to see better. Today morning she went to see her sister in custodial. She has history of panic attacks. When she saw her sister she felt getting a panic attack. At the time again she had double vision and she drove back home. At this time it lasted for 5 to 10 minutes. Again around 2 PM she started to get double vision again which lasted for about same amount of time and when she decided come to the hospital. Currently vision is okay. She is seeing okay. Denies any headache. No dizziness. No runny nose or sore throat. No earache. Speech is okay. No difficulty swallowing. No chest pain. No shortness of breath. No weakness or tingliness in extremities. No nausea. No abdominal pain. Somewhat constipated. Micturating okay. Hemodynamics are okay. Afebrile. Currently resting comfortably. Past medical history. As mentioned above. Past surgical history. Colonoscopy. Partial hysterectomy. Appendectomy. Thyroidectomy. Removal of parotid gland. Repair of Right hammertoe. Social history. . Quit smoking 2018. Smoked 0.3 pack a day for 42 years. Alcohol wine with dinner. No drug use. Family history. Mother had arthritis. Hyperlipidemia. CAD. Heart attack. Brother had CAD. Father had CAD. Brain aneurysm at age of 67. Sister has hypertension. Allergies Allergy/AdvReac Type Severity Reaction Status Date / Time No Known Allergies Allergy Verified 04/12/24 09:08 Home Medications Medication Instructions Recorded Confirmed Type alprazolam 0.25 mg tablet 0.25 mg PO BID PRN Panic Attack(S) 04/03/25 04/03/25 History amlodipine 5 mg tablet 5 mg PO DAILY 04/03/25 04/03/25 History aspirin 81 mg tablet,delayed 81 mg PO DAILYBL 04/03/25 04/03/25 History release atorvastatin 20 mg tablet 20 mg PO DAILY 04/03/25 04/03/25 History calcium 600 mg (as 1 tab PO DAILYBL 04/03/25 04/03/25 History carbonate)-vitamin D3 10 mcg (400 unit) tablet (Calcium 600 + D(3)) escitalopram oxalate 10 mg tablet 10 mg PO DAILY 04/03/25 04/03/25 History levothyroxine 100 mcg tablet 100 mcg PO DAILY 04/03/25 04/03/25 History (Synthroid) lisinopril 10 mg tablet 10 mg PO HS 04/03/25 04/03/25 History lisinopril 20 mg tablet 20 mg PO DAILY 04/03/25 04/03/25 History metoprolol succinate 50 mg 50 mg PO DAILY 04/03/25 04/03/25 History tablet,extended release 24 hr multivitamin with minerals 1 tab PO DAILYBL 04/03/25 04/03/25 History Past Med/Surg History Problem List (Updated 04/03/25 @ 23:40 by Abiodun Velazquez MD) Anisocoria (Acute) Diplopia (Acute) Double vision Skin lesion Cystocele with prolapse Hypercholesteremia Lichen sclerosus et atrophicus Hypothyroidism Graves disease Lichen sclerosus et atrophicus HTN (hypertension) (Chronic) Medical History H/O herpes zoster Surgical History H/O: hysterectomy 02/02/07-Vaginal, with anterior and posterior repair (Uterus and Cervix) History of dilation and curettage History of appendectomy Family History Denies family history of Ovarian cancer Breast cancer Colorectal cancer Social History Smoking Status: Current every day smoker Tobacco Type: Cigarettes Second Hand Exposure: No; Do You Dip or Chew Tobacco: No; Tobacco Cessation Education Requested by Patient: No Hx Alcohol Use: Yes Alcohol type: wine Hx Substance Use: No Preferred Language: [place] Communication Ability: Effective Recreation Activities Coordinator Required: No Beliefs That Will Affect Care: None marital status: Current Living Situation: Spouse Other Information That Helps Us Care for You: No Feels Safe at Home: Yes Safety Concerns: Feels Safe At This Time Dental Care, Regularly: Yes Seatbelt Use: always Sunscreen Use: Yes Assistive Devices: Glasses Review of Systems Review of Systems: All systems reviewed & are unremarkable except as noted in HPI & below Physical Exam Physical Exam: General-Not in distress Head- atraumatic Eyes- EOMI. Vision is ok PERRL. ENT- oropharynx clear Neck- supple, no JVD. Lungs- clear to auscultation no wheezing or crackles Heart- regular rhythm; no murmur, no gallop. Abdomen- normal bowel sounds, soft, nontender, no distension Extremities- no pretibial edema, no erythema seen Neuro- alert, oriented PERRL, EOMI; no facial palsy; no dysarthria; motor 5/5 bilaterally; no pronator drift, co ordination of movements normal, sensations intact Skin- warm & dry Results & Data Results & Data Vital Signs (Past 12 Hours) Vital Signs Temp Pulse Pulse Resp BP BP Pulse Ox 04/03/25 21:38 87 04/03/25 20:00 90 18 140/83 96 04/03/25 18:49 89 19 140/83 97 04/03/25 17:36 80 04/03/25 16:53 88 17 95 04/03/25 16:53 88 19 133/69 95 04/03/25 15:53 36.5 C 104 H 18 113/70 97 O2 Del Method 04/03/25 21:38 04/03/25 20:00 Room Air 04/03/25 18:49 Room Air 04/03/25 17:36 04/03/25 16:53 Room Air 04/03/25 16:53 Room Air 04/03/25 15:53 Room Air Diagnostic Findings Laboratory Results WBC 5.79 K/ul (4.8-10.8) 04/03/25 16:50 RBC 4.03 M/uL (4.20-5.40) L 04/03/25 16:50 Hgb 12.0 g/dL (12.0-16.0) 04/03/25 16:50 POC Hgb 12.2 g/dl (12.0-16.0) 04/03/25 17:01 Hct 35.8 % (37.0-47.0) L 04/03/25 16:50 POC Hct 36 % (37-47) L 04/03/25 17:01 MCV 88.8 fL (80.0-100.0) 04/03/25 16:50 MCH 29.8 pg (25.0-34.0) 04/03/25 16:50 MCHC 33.5 g/dL (32.0-36.0) 04/03/25 16:50 RDW Std Deviation 40.1 fL (36.4-46.3) 04/03/25 16:50 RDW Coeff of [place] 12.2 % (11.5-14.5) 04/03/25 16:50 Plt Count 288 K/uL (130-400) 04/03/25 16:50 MPV 8.5 fL (9.4-12.4) L 04/03/25 16:50 Immature Gran % (Auto) 0.3 % 04/03/25 16:50 Neut % (Auto) 65.4 % 04/03/25 16:50 Lymph % (Auto) 24.5 % 04/03/25 16:50 [place] % (Auto) 8.5 % 04/03/25 16:50 Eos % (Auto) 1.0 % 04/03/25 16:50 Baso % (Auto) 0.3 % 04/03/25 16:50 Neut # (Auto) 3.78 K/uL (1.40-6.50) 04/03/25 16:50 Lymph # (Auto) 1.42 K/uL (1.20-3.40) 04/03/25 16:50 [place] # (Auto) 0.49 K/uL (0.11-0.59) 04/03/25 16:50 Eos # (Auto) 0.06 K/uL (0.00-0.50) 04/03/25 16:50 Baso # (Auto) 0.02 K/uL (0.00-0.20) 04/03/25 16:50 Immature Gran # (Auto) 0.02 K/uL (0.01-0.20) 04/03/25 16:50 POC Sodium 136 mmol/L (135-144) 04/03/25 17:01 Sodium 136 mmol/L (136-145) 04/03/25 16:50 POC Potassium 4.1 mmol/L (3.3-5.0) 04/03/25 17:01 Potassium 4.3 mmol/L (3.5-5.1) 04/03/25 16:50 POC Chloride 101 mmol/L (101-112) 04/03/25 17:01 Chloride 102 mmol/L (98-107) 04/03/25 16:50 Carbon Dioxide 24 mmol/L (21-32) 04/03/25 16:50 POC Total CO2 21 mmol/L (24-31) L 04/03/25 17:01 Anion Gap 10 (3-11) 04/03/25 16:50 POC Anion Gap 19.0 mmol/L (16-25) 04/03/25 17:01 POC BUN 23 mg/dl (7-18) H 04/03/25 17:01 BUN 23 mg/dl (6-23) 04/03/25 16:50 Creatinine 1.03 mg/dl (0.6-1.2) 04/03/25 16:50 POC Creatinine 1.2 mg/dl (0.6-1.3) 04/03/25 17:01 Est Cr Clr Drug Dosing 46.5 ml/min 04/03/25 16:50 eGFR 56.70 04/03/25 16:50 BUN/Creatinine Ratio 22.3 (10-20) H 04/03/25 16:50 Glucose 90 mg/dl (70-99(Fasting)) 04/03/25 16:50 POC Glucose (other) 87 mg/dl (70-99) 04/03/25 17:01 Calcium 9.9 mg/dl (8.6-10.3) 04/03/25 16:50 POC Ioniz Calcium [place] 1.27 mmol/l (1.12-1.32) 04/03/25 17:01 Magnesium 2.1 mg/dl (1.7-2.4) 04/03/25 16:50 Total Bilirubin 0.3 mg/dl (0.2-1.0) 04/03/25 16:50 AST 17 U/L (13-39) 04/03/25 16:50 ALT 11 U/L (7-52) 04/03/25 16:50 Alkaline Phosphatase 70 U/L (34-104) 04/03/25 16:50 Total Protein 6.7 gm/dl (6.0-8.3) 04/03/25 16:50 Albumin 3.8 gm/dl (3.4-5.0) 04/03/25 16:50 Globulin 2.9 gm/dl (2.5-4.0) 04/03/25 16:50 Albumin/Globulin Ratio 1.3 (0.9-2) 04/03/25 16:50 TSH 1.883 uIu/ml (0.300-4.500) 04/03/25 16:50 Urine Color Yellow 04/03/25 21:12 Urine Appearance Clear (Clear) 04/03/25 21:12 Urine pH 6.0 (4.5-7.5) 04/03/25 21:12 Ur Specific [place] > 1.045 (1.000-1.030) H 04/03/25 21:12 Urine Protein Negative (Negative) 04/03/25 21:12 Urine Glucose (UA) Negative (Negative) 04/03/25 21:12 Urine Ketones Trace (Negative) H 04/03/25 21:12 Urine Blood 2+ (Negative) H 04/03/25 21:12 Urine Nitrite Negative (Negative) 04/03/25 21:12 Urine Bilirubin Negative (Negative) 04/03/25 21:12 Urine Urobilinogen Negative (Negative) 04/03/25 21:12 Ur Leukocyte Esterase Negative (Negative) 04/03/25 21:12 Urine WBC (Auto) 0-5 /hpf (0-5) 04/03/25 21:12 Urine RBC (Auto) 11-20 /hpf (0-2) H 04/03/25 21:12 U Hyaline Cast (Auto) 0-2 /lpf (0-2) 04/03/25 21:12 U Epithel Cells (Auto) 0-2 /hpf (0-2) 04/03/25 21:12 Urine Bacteria (Auto) None Seen (None Seen) 04/03/25 21:12 Urine Comment 04/03/25 21:12 Ethyl Alcohol mg/dL 32.1 mg/dl (<10.0) H 04/03/25 16:50 Lyme Disease Screen Negative (Negative) 04/03/25 16:15 Impressions Chest X-Ray 04/03/25 16:18 EXAM: Radiograph of the Chest 1 View INDICATION: Trauma TECHNIQUE: Frontal view of the chest. COMPARISON: No relevant prior studies available. FINDINGS: Lungs and pleural spaces: No consolidation or pulmonary edema. No pleural effusion or pneumothorax. Heart: Shape and configuration within normal limits allowing for technique. Mediastinum: Normal contour. Bones/joints: No fracture, erosion or dislocation. Soft tissues: No abnormality noted. No radiopaque foreign body noted. Vasculature: Ectatic aorta. Upper abdomen: No abnormality noted. IMPRESSION: No acute cardiopulmonary disease. ACT 112: N/A Electronically signed by Sylvie Munoz 04-03-2025 6:[address] 04/03/25 16:18 EXAM: CT Head Without Intravenous Contrast INDICATION: Recurrent double vision. TECHNIQUE: Axial computed tomography images of the head/brain without intravenous contrast. Sagittal and/or coronal reformats are provided. Sagittal and coronal reformatted images were created and reviewed. This CT exam was performed using one or more of the following dose reduction techniques: automated exposure control, adjustment of the mA and/or kV according to patient size, and/or use of iterative reconstruction technique. COMPARISON: 04/03/2019 FINDINGS: Limitations: None. Brain and extra-axial spaces: There is age appropriate cortical atrophy and chronic ischemic periventricular white matter hypodensity. No acute infarct, hemorrhage or mass noted. Bones/joints: No acute changes. Soft tissues: No acute abnormality noted. Vasculature: No acute abnormality noted. Lymph nodes: Small incidental parotid lymph nodes. Sinuses: No layering fluid in the visualized portions of the paranasal sinuses. Mastoid air cells: Moderate right mastoid thickening. Orbits: No acute abnormality noted. IMPRESSION: 1. Cerebral atrophy. No acute changes. 2. Chronic right mastoiditis. ACT 112: N/A Electronically signed by Sylvie Munoz 04-03-2025 7:37 PM Head CTA 04/03/25 16:18 EXAM: CT Angiography Head and Neck With Intravenous Contrast INDICATION: Intermittent double vision. TECHNIQUE: [place] [facility] [place]/head and neck CT angiography protocol performed with intravenous contrast. Sagittal and coronal reformatted images were created and reviewed. This CT exam was performed using one or more of the following dose reduction techniques: automated exposure control, adjustment of the mA and/or kV according to patient size, and/or use of iterative reconstruction technique. MIP reconstructed images were created and reviewed. COMPARISON: None. FINDINGS: HEAD: Right anterior cerebral artery: No abnormality noted. No occlusion or significant stenosis. Anterior communicating artery is present. No aneurysm. Right middle cerebral artery: No abnormality noted. No occlusion or significant stenosis. No aneurysm. Right posterior cerebral artery: No abnormality noted. No occlusion or significant stenosis. No aneurysm. Right intracranial internal carotid artery: Mild diffuse plaque. No significant stenosis. No dissection or occlusion. Right intracranial vertebral artery: No abnormality noted. No significant stenosis. No dissection or occlusion. Left anterior cerebral artery: No abnormality noted. No occlusion or significant stenosis. No aneurysm. Left middle cerebral artery: No abnormality noted. No occlusion or significant stenosis. No aneurysm. Left posterior cerebral artery: No abnormality noted. No occlusion or significant stenosis. No aneurysm. Left intracranial internal carotid artery: Mild diffuse plaque. No significant stenosis. No dissection or occlusion. Left intracranial vertebral artery: No abnormality noted. No significant stenosis. No dissection or occlusion. Basilar artery: No abnormality noted. No occlusion or significant stenosis. No aneurysm. Other vasculature: No vascular malformation. NECK: Right common carotid artery: No abnormality noted. No significant stenosis. No dissection or occlusion. Right extracranial internal carotid artery: Mild calcific plaque at the bulb. No significant stenosis. No dissection or occlusion. Right external carotid artery: No abnormality noted. No occlusion. Right extracranial vertebral artery: No abnormality noted. No significant stenosis. No dissection or occlusion. Left common carotid artery: No abnormality noted. No significant stenosis. No dissection or occlusion. Left extracranial internal carotid artery: Mild calcific plaque at the bulb. No significant stenosis. No dissection or occlusion. Left external carotid artery: No abnormality noted. No occlusion. Left extracranial vertebral artery: No abnormality noted. No significant stenosis. No dissection or occlusion. Lung apices: No acute abnormality noted. HEAD and NECK: Bones/joints: No significant abnormality. Soft tissues: No abnormality noted. CAROTID STENOSIS REFERENCE USING NASCET CRITERIA: % ICA stenosis = (1 - narrowest ICA diameter/diameter of distal cervical ICA) x 100. Mild - <50% stenosis. Moderate - 50-69% stenosis. Severe - 70-94% stenosis. Near occlusion - 95-99% stenosis. Occluded - 100% stenosis. IMPRESSION: 1. No large vessel occlusion, aneurysm or dissection in the head or neck. 2. Chronic right mastoiditis. ACT 112: N/A Electronically signed by Sylvie Munoz 04-03-2025 7:37 PM Neck CTA 04/03/25 16:18 EXAM: CT Angiography Head and Neck With Intravenous Contrast INDICATION: Intermittent double vision. TECHNIQUE: [place] [facility] [place]/head and neck CT angiography protocol performed with intravenous contrast. Sagittal and coronal reformatted images were created and reviewed. This CT exam was performed using one or more of the following dose reduction techniques: automated exposure control, adjustment of the mA and/or kV according to patient size, and/or use of iterative reconstruction technique. MIP reconstructed images were created and reviewed. COMPARISON: None. FINDINGS: HEAD: Right anterior cerebral artery: No abnormality noted. No occlusion or significant stenosis. Anterior communicating artery is present. No aneurysm. Right middle cerebral artery: No abnormality noted. No occlusion or significant stenosis. No aneurysm. Right posterior cerebral artery: No abnormality noted. No occlusion or significant stenosis. No aneurysm. Right intracranial internal carotid artery: Mild diffuse plaque. No significant stenosis. No dissection or occlusion. Right intracranial vertebral artery: No abnormality noted. No significant stenosis. No dissection or occlusion. Left anterior cerebral artery: No abnormality noted. No occlusion or significant stenosis. No aneurysm. Left middle cerebral artery: No abnormality noted. No occlusion or significant stenosis. No aneurysm. Left posterior cerebral artery: No abnormality noted. No occlusion or significant stenosis. No aneurysm. Left intracranial internal carotid artery: Mild diffuse plaque. No significant stenosis. No dissection or occlusion. Left intracranial vertebral artery: No abnormality noted. No significant stenosis. No dissection or occlusion. Basilar artery: No abnormality noted. No occlusion or significant stenosis. No aneurysm. Other vasculature: No vascular malformation. NECK: Right common carotid artery: No abnormality noted. No significant stenosis. No dissection or occlusion. Right extracranial internal carotid artery: Mild calcific plaque at the bulb. No significant stenosis. No dissection or occlusion. Right external carotid artery: No abnormality noted. No occlusion. Right extracranial vertebral artery: No abnormality noted. No significant stenosis. No dissection or occlusion. Left common carotid artery: No abnormality noted. No significant stenosis. No dissection or occlusion. Left extracranial internal carotid artery: Mild calcific plaque at the bulb. No significant stenosis. No dissection or occlusion. Left external carotid artery: No abnormality noted. No occlusion. Left extracranial vertebral artery: No abnormality noted. No significant stenosis. No dissection or occlusion. Lung apices: No acute abnormality noted. HEAD and NECK: Bones/joints: No significant abnormality. Soft tissues: No abnormality noted. CAROTID STENOSIS REFERENCE USING NASCET CRITERIA: % ICA stenosis = (1 - narrowest ICA diameter/diameter of distal cervical ICA) x 100. Mild - <50% stenosis. Moderate - 50-69% stenosis. Severe - 70-94% stenosis. Near occlusion - 95-99% stenosis. Occluded - 100% stenosis. IMPRESSION: 1. No large vessel occlusion, aneurysm or dissection in the head or neck. 2. Chronic right mastoiditis. ACT 112: N/A Electronically signed by Sylvie Munoz 04-03-2025 7:37 PM ECG Additional Comments: ECG. Normal sinus rhythm rate at 85. No acute ST changes seen.
[2025-04-03] MEDS: LORazepam 1 MG/1 ML SYR ED Inj Use IV STA (23:45)
--- NOTE | 2025-04-04 00:59 | Magnetic Resonance Report ---
EXAM: MR brain wo con CLINICAL HISTORY: eval stroke TECHNIQUE: MRI of the brain was performed without contrast, with multiplanar sequences obtained. COMPARISON: 04/03/2019 CT scan. Correlation was also done with Brain CT and CTA on 04/03/2025. FINDINGS: Brain Parenchyma: No evidence of acute infarction or hemorrhage. Deep white matter chronic microvascular ischemic changes. Unchanged. Bilateral basal ganglia chronic lacunar infarcts. New. No mass lesions or focal cortical abnormalities identified. Ventricles and Sulci: Normal size and configuration of the lateral ventricles, third ventricle, and fourth ventricle. Prominent sulci and subarachnoid spaces. Unchanged. Posterior Fossa: Cerebellum and brainstem appear normal without evidence of mass lesions or signal abnormalities. Cranial Nerves: Normal course and appearance of cranial nerves identified. Vessels: No evidence of vascular malformations or aneurysms. Intracranial arteries and veins appear normal without evidence of stenosis or occlusion. Orbits and Skull Base: Orbits and skull base structures are normal without evidence of abnormalities. Mastoid air cells: Almost complete opacification of the right-sided mastoid air cells. New. IMPRESSION: 1- No MRI evidence of acute infarction or acute intracranial hemorrhage in this stroke evaluation. 2- New chronic lacunar infarcts involving the bilateral basal ganglia. 3- Diffuse involutional changes and deep?white?matter chronic microvascular ischemic changes, unchanged. 4- Right mastoid air?cell near?complete opacification, new. Correlate clinically to rule out mastoiditis. Electronically signed by Jimmy Cancino 04-04-2025 12:58 AM
[2025-04-04] MEDS ORDERED: NITROGLYCERIN SL 0.4 MG/TAB TAB SL PRN (01:31)
[2025-04-04] MEDS ORDERED: POLYETHYLENE (MIRALAX) 17 GM PACK PO PRN (01:31)
[2025-04-04] MEDS ORDERED: ACETAMINOPHEN 325 MG TAB PO PRN (01:31)
[2025-04-04] MEDS ORDERED: PHARMACIST DISCHARGE MED REC CONSULT PRN (01:31)
[2025-04-04] MEDS: SODIUM CHLORIDE 0.9% 1,000 ML IV SCH (01:50)
[2025-04-04] MEDS: LEVOTHYROXINE SODIUM 100 MCG TABLET PO SCH (05:26)
[2025-04-04 06:23] LABS: Hematocrit (blood only) 33.4 % (37.0-47.0); Hemoglobin 11.2 g/dL (12.0-16.0); Immature Granulocytes # (auto) 0.02 K/uL (0.01-0.20); Immature Granulocytes % (auto) 0.4 %; Mean Corpuscular Hemoglobin 29.2 pg (25.0-34.0); Mean Corpuscular Volume 87.2 fL (80.0-100.0); Platelet Count 253 K/uL (130-400); RDW Standard Deviation 39.8 fL (36.4-46.3); Red Blood Count 3.83 M/uL (4.20-5.40); White Blood Count 5.12 K/ul (4.8-10.8)
[2025-04-04 06:48] LABS: Anion Gap 6.0 (3-11); Blood Urea Nitrogen 18.0 mg/dl (6-23); Calcium 9.2 mg/dl (8.6-10.3); Carbon Dioxide 27.0 mmol/L (21-32); Chloride 104.0 mmol/L (98-107); Cholesterol 130.0 mg/dl (0-200); Creatinine Clr Calc Pharmacy 61.7 ml/min; Glucose 84.0 mg/dl (70-99(Fasting)); HDL Cholesterol 40.0 mg/dl; Potassium 4.1 mmol/L (3.5-5.1); Sodium 137.0 mmol/L (136-145); Triglycerides 85.0 mg/dl (0-150)
[2025-04-04 07:53] LABS: Hemoglobin A1C 5.8 % (4.5-5.6)
[2025-04-04] MEDS: ATORVASTATIN 20 MG TAB PO SCH (08:23)
[2025-04-04] MEDS: ESCITALOPRAM OXALATE 10 MG TAB PO SCH (08:24)
[2025-04-04] MEDS: METOPROLOL SUCC 50MG EXT REL TAB PO SCH (08:25)
[2025-04-04] MEDS: REMOVE NICODERM PATCH SCH (08:25)
[2025-04-04] MEDS ORDERED: LORazepam 1 MG TAB PO PRN (09:08)
[2025-04-04] MEDS: CEROVITE ADV FORMULA TAB PO SCH (10:28)
[2025-04-04] MEDS: FOLIC ACID 1 MG TAB PO SCH (10:28)
[2025-04-04] MEDS: NICOTINE 7 MG/24 HR TDSY TD SCH (10:28)
[2025-04-04] MEDS: THIAMINE HCL 100 MG TAB PO SCH (10:28)
[2025-04-04] MEDS: CALCIUM 600MG + VIT D 400 IU TAB PO SCH (10:28)
[2025-04-04] MEDS: ASPIRIN 81 MG ECTAB PO SCH (10:29)
[2025-04-04 12:11] VITALS: BP 145/71; RESP 16; TEMP 98.2; O2SAT 96
--- NOTE | 2025-04-04 12:11 | XCELERA ---
[id number]
--- NOTE | 2025-04-04 13:05 | Neurology Consultation ---
Date of Consultation April 04, 2025 Assessment & Plan (1) Transient ischemic attack: - Recommend increase aspirin to 325 mg daily - Increase atorvastatin to 40 mg daily, LDL 73, goal LDL is < 70 - Recommend ZIO patch as outpatient as patient reports history of palpitations - Follow up in stroke Neurology Clinic in 1 month after discharge - I discussed with the patient reasons to return to Emergency Department including unilateral facial droop, weakness, numbness, paresthesias, dizziness, lightheadedness, vision loss, or severe onset headache I discussed my recommendations with Dr. Matias Ryan. No further tele Neurology recommendations. Thank you for this consult. Please call with questions. Telehealth Consultation Telehealth Information Telehealth Information: I performed this visit using a real-time telehealth connection between my location and the patients originating location ([facility]). After connecting through interactive tele-video, patient was identified by name and date of and/or wristband check.Patient (or authorized healthcare automobile rental representative) was informed that this was a telemedicine visit and it was being conducted confidentially over secure lines. My office door was closed and no one else was present in the room with me.Patient (or authorized healthcare automobile rental representative) provided consent to proceed with the visit, expressed an underst anding of privacy and security of the telemedicine visit, and gave permission to have a hospital automobile rental representative in the room in order to assist with the visit and to conduct portions of the visit, as needed. I informed the patient (or authorized healthcare automobile rental representative) that I reviewed their record and presented the opportunity for them to ask any questions regarding the visit today. The patient agreed to participate. History of Present Illness Reason for Consultation: transient diplopia Attending Physician: Matias Ryan MD History of Present Illness Sofía Rod is a 74-year-old female smoker with a past medical history of hyperlipidemia, Graves disease s/p thyroidectomy, panic attacks, generalized anxiety disorder who presents to [facility] Emergency Department on 04/03/2025 with 2 episodes of transient diplopia. Per report, the patient was in her normal state of health at a computer when she developed transient horizontal diplopia for approximately 5 minutes. She experienced a 2nd episode later in the day which lasted for approximately 15 minutes. She reports some dizziness, lightheadedness, and anxiety during these episodes. She denies weakness, numbness, paresthesias, nausea, vomiting, or headache. These symptoms have never happened to her before. Her recent medication change was discontinuing hydrochlorothiazide and adding amlodipine. She has no recent sxac-[id number]-[id number] medication changes. She has an annual dilated eye exam most recently last May. She does have a history of cataract surgery. She drinks approximately 1 glass of wine per night. She me she quit smoking yesterday when she placed a nicotine patch, otherwise she smokes 5 cigarettes per day. She has a history of generalized anxiety disorder and panic attacks and does report heart palpitations. No known history of atrial fibrillation. At baseline, the patient is independent with eating, bathing, walking, driving, and finances. Modified Janae scale score at baseline is 0. The patient takes aspirin 81 mg daily at home. In the Emergency Department, MRI brain was unremarkable. CT angiogram head and neck did not show any stenoses or large vessel occlusion. CT head was unremarkable. TTE revealed LVEF 55-60%, normal left atrium, no patent foramen ovale or atrial septal defect. NIHSS is 0. Histories: PMH: hyperlipidemia, Graves disease s/p thyroidectomy, panic attacks, generalized anxiety disorder PSH: Hysterectomy, hammertoe, cataract surgery SH: Patient reports she quit smoking on 04/03/2025, she drinks 1 glass of wine per day, denies recreational drug use Allergies Allergy/AdvReac Type Severity Reaction Status Date / Time No Known Allergies Allergy Verified 04/12/24 09:08 Home Medications Medication Instructions Recorded Confirmed Type alprazolam 0.25 mg tablet 0.25 mg PO BID PRN Panic Attack(S) 04/03/25 04/03/25 History amlodipine 5 mg tablet 5 mg PO DAILY 04/03/25 04/03/25 History aspirin 81 mg tablet,delayed 81 mg PO DAILYBL 04/03/25 04/03/25 History release atorvastatin 20 mg tablet 20 mg PO DAILY 04/03/25 04/03/25 History calcium 600 mg (as 1 tab PO DAILYBL 04/03/25 04/03/25 History carbonate)-vitamin D3 10 mcg (400 unit) tablet (Calcium 600 + D(3)) escitalopram oxalate 10 mg tablet 10 mg PO DAILY 04/03/25 04/03/25 History levothyroxine 100 mcg tablet 100 mcg PO DAILY 04/03/25 04/03/25 History (Synthroid) lisinopril 10 mg tablet 40 mg PO DAILY 04/03/25 04/04/25 History metoprolol succinate 50 mg 50 mg PO DAILY 04/03/25 04/03/25 History tablet,extended release 24 hr multivitamin with minerals 1 tab PO DAILYBL 04/03/25 04/03/25 History Patient History Medical History H/O herpes zoster Surgical History H/O: hysterectomy 02/02/07-Vaginal, with anterior and posterior repair (Uterus and Cervix) History of dilation and curettage History of appendectomy Family History Denies family history of Ovarian cancer Breast cancer Colorectal cancer Social History Smoking Status: Current every day smoker Tobacco Type: Cigarettes Second Hand Exposure: No; Do You Dip or Chew Tobacco: No; Tobacco Cessation Education Requested by Patient: No Hx Alcohol Use: Yes Alcohol type: wine Hx Substance Use: No Preferred Language: Macedonian Communication Ability: Effective 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 Results & Data Vital Signs (Past 12 Hours) Vital Signs Temp Pulse Pulse Pulse Resp BP Pulse Ox 04/04/25 11:39 36.8 C 75 16 145/71 H 96 04/04/25 07:45 88 04/04/25 07:41 36.7 C 84 18 149/75 H 95 04/04/25 03:39 36.4 C L 84 16 132/73 96 04/04/25 01:31 82 04/04/25 01:25 36.3 C L 81 18 156/79 H 97 04/04/25 01:10 72 18 131/88 95 O2 Del Method 04/04/25 11:39 Room Air 04/04/25 07:45 04/04/25 07:41 Room Air 04/04/25 03:39 Room Air 04/04/25 01:31 04/04/25 01:25 Room Air 04/04/25 01:10 Room Air Laboratory Results Abnormal Lab Results 04/03/25 04/03/25 04/03/25 16:15 16:50 17:01 WBC 5.79 RBC 4.03 L Hgb 12.0 POC Hgb 12.2 Hct 35.8 L POC Hct 36 L MCV 88.8 MCH 29.8 MCHC 33.5 RDW Std Deviation 40.1 RDW Coeff of Elton 12.2 Plt Count 288 MPV 8.5 L Immature Gran % (Auto) 0.3 Neut % (Auto) 65.4 Lymph % (Auto) 24.5 Norton % (Auto) 8.5 Eos % (Auto) 1.0 Baso % (Auto) 0.3 Neut # (Auto) 3.78 Lymph # (Auto) 1.42 Norton # (Auto) 0.49 Eos # (Auto) 0.06 Baso # (Auto) 0.02 Immature Gran # (Auto) 0.02 POC Sodium 136 Sodium 136 POC Potassium 4.1 Potassium 4.3 POC Chloride 101 Chloride 102 Carbon Dioxide 24 POC Total CO2 21 L Anion Gap 10 POC Anion Gap 19.0 POC BUN 23 H BUN 23 Creatinine 1.03 POC Creatinine 1.2 Est Cr Clr Drug Dosing 46.5 eGFR 56.70 BUN/Creatinine Ratio 22.3 H Glucose 90 POC Glucose (other) 87 Estimat Average Glucose Hemoglobin A1c Calcium 9.9 POC Ioniz Calcium Sierra 1.27 Magnesium 2.1 Total Bilirubin 0.3 AST 17 ALT 11 Alkaline Phosphatase 70 Total Protein 6.7 Albumin 3.8 Globulin 2.9 Albumin/Globulin Ratio 1.3 Triglycerides Cholesterol LDL Cholesterol, Calc VLDL Cholesterol, Calc HDL Cholesterol Cholesterol/HDL Ratio TSH 1.883 Urine Color Urine Appearance Urine pH Ur Specific [place] Urine Protein Urine Glucose (UA) Urine Ketones Urine Blood Urine Nitrite Urine Bilirubin Urine Urobilinogen Ur Leukocyte Esterase Urine WBC (Auto) Urine RBC (Auto) U Hyaline Cast (Auto) U Epithel Cells (Auto) Urine Bacteria (Auto) Urine Comment Ethyl Alcohol mg/dL 32.1 H Lyme Disease Screen Negative 04/03/25 04/04/25 21:12 05:43 WBC 5.12 RBC 3.83 L Hgb 11.2 L POC Hgb Hct 33.4 L POC Hct MCV 87.2 MCH 29.2 MCHC 33.5 RDW Std Deviation 39.8 RDW Coeff of Elton 12.4 Plt Count 253 MPV 8.5 L Immature Gran % (Auto) 0.4 Neut % (Auto) 60.9 Lymph % (Auto) 25.6 Norton % (Auto) 10.4 Eos % (Auto) 2.3 Baso % (Auto) 0.4 Neut # (Auto) 3.12 Lymph # (Auto) 1.31 Norton # (Auto) 0.53 Eos # (Auto) 0.12 Baso # (Auto) 0.02 Immature Gran # (Auto) 0.02 POC Sodium Sodium 137 POC Potassium Potassium 4.1 POC Chloride Chloride 104 Carbon Dioxide 27 POC Total CO2 Anion Gap 6 POC Anion Gap POC BUN BUN 18 Creatinine 0.77 POC Creatinine Est Cr Clr Drug Dosing 61.7 eGFR 80.39 BUN/Creatinine Ratio 23.4 H Glucose 84 POC Glucose (other) Estimat Average Glucose 120 Hemoglobin A1c 5.8 H Calcium 9.2 POC Ioniz Calcium Sierra Magnesium Total Bilirubin AST ALT Alkaline Phosphatase Total Protein Albumin Globulin Albumin/Globulin Ratio Triglycerides 85 Cholesterol 130 LDL Cholesterol, Calc 73 VLDL Cholesterol, Calc 17 HDL Cholesterol 40 Cholesterol/HDL Ratio 3.3 TSH Urine Color Yellow Urine Appearance Clear Urine pH 6.0 Ur Specific [place] > 1.045 H Urine Protein Negative Urine Glucose (UA) Negative Urine Ketones Trace H Urine Blood 2+ H Urine Nitrite Negative Urine Bilirubin Negative Urine Urobilinogen Negative Ur Leukocyte Esterase Negative Urine WBC (Auto) 0-5 Urine RBC (Auto) 11-20 H U Hyaline Cast (Auto) 0-2 U Epithel Cells (Auto) 0-2 Urine Bacteria (Auto) None Seen Urine Comment Ethyl Alcohol mg/dL Lyme Disease Screen Diagnostic Findings Head CT 04/03/25 16:18 IMPRESSION: 1. Cerebral atrophy. No acute changes. 2. Chronic right mastoiditis. Electronically signed by Sylvie Munoz 04-03-2025 7:37 PM Head Neck CTA 04/03/25 16:18 IMPRESSION: 1. No large vessel occlusion, aneurysm or dissection in the head or neck. 2. Chronic right mastoiditis. Electronically signed by Sylvie Munoz 04-03-2025 7:37 PM Brain MRI 04/03/25 20:16 IMPRESSION: 1- No MRI evidence of acute infarction or acute intracranial hemorrhage in this stroke evaluation. 2- New chronic lacunar infarcts involving the bilateral basal ganglia. 3- Diffuse involutional changes and deep?white?matter chronic microvascular ischemic changes, unchanged. 4- Right mastoid air?cell near?complete opacification, new. Correlate clinically to rule out mastoiditis. Electronically signed by Jimmy Cancino 04-04-2025 12:58 AM Medications Administered Home Medications Medication Instructions Recorded Confirmed Last Taken alprazolam 0.25 mg tablet 0.25 mg PO BID PRN Panic Attack(S) 04/03/25 04/03/25 Unknown amlodipine 5 mg tablet 5 mg PO DAILY 04/03/25 04/03/25 Unknown aspirin 81 mg tablet,delayed 81 mg PO DAILYBL 04/03/25 04/03/25 Unknown release atorvastatin 20 mg tablet 20 mg PO DAILY 04/03/25 04/03/25 Unknown calcium 600 mg (as 1 tab PO DAILYBL 04/03/25 04/03/25 Unknown carbonate)-vitamin D3 10 mcg (400 unit) tablet (Calcium 600 + D(3)) escitalopram oxalate 10 mg tablet 10 mg PO DAILY 04/03/25 04/03/25 Unknown levothyroxine 100 mcg tablet 100 mcg PO DAILY 04/03/25 04/03/25 Unknown (Synthroid) lisinopril 10 mg tablet 40 mg PO DAILY 04/03/25 04/04/25 Unknown metoprolol succinate 50 mg 50 mg PO DAILY 04/03/25 04/03/25 Unknown tablet,extended release 24 hr multivitamin with minerals 1 tab PO DAILYBL 04/03/25 04/03/25 Unknown Active Medications Generic Name Dose Route Start Last Admin Trade Name Freq PRN Reason Stop Dose Admin Alprazolam 0.25 mg 04/04/25 01:31 04/04/25 08:25 Alprazolam 0.25 Mg Tablet PO 05/04/25 01:30 0.25 mg BID PRN Administration Panic Attack(S) Amlodipine Besylate 5 mg 04/04/25 09:00 04/04/25 08:24 Amlodipine Besylate 5 Mg Tab PO 05/04/25 08:59 5 mg DAILY HASRHA Administration Aspirin 81 mg 04/04/25 10:30 04/04/25 10:29 Aspirin 81 Mg Ectab PO 05/04/25 10:29 81 mg DAILYBL HARSHA Administration Atorvastatin Calcium 20 mg 04/04/25 09:00 04/04/25 08:23 Atorvastatin 20 Mg Tab PO 05/04/25 08:59 20 mg DAILY HARSHA Administration Calcium/Vitamin D 1 tab 04/04/25 10:30 04/04/25 10:28 Calcium 600mg + Vit D 400 Iu Tab PO 05/04/25 10:29 1 tab DAILYBL HARSHA Administration Escitalopram Oxalate 10 mg 04/04/25 09:00 04/04/25 08:24 Escitalopram Oxalate 10 Mg Tab PO 05/04/25 08:59 10 mg DAILY HARSHA Administration Folic Acid 1 mg 04/04/25 09:15 04/04/25 10:28 Folic Acid 1 Mg Tab PO 05/04/25 09:14 1 mg QAM HARSHA Administration Sodium Chloride 1,000 mls @ 80 mls/hr 04/04/25 01:31 04/04/25 01:50 Nss IV 04/04/25 14:00 80 mls/hr .[id number] HARSHA Administration Levothyroxine Sodium 100 mcg 04/04/25 06:30 04/04/25 05:26 Levothyroxine Sodium 100 Mcg Tablet PO 05/04/25 06:29 100 mcg DAILYBB HARSHA Administration Metoprolol Succinate 50 mg 04/04/25 09:00 04/04/25 08:25 Metoprolol Succ 50mg Ext Rel Tab PO 05/04/25 08:59 50 mg DAILY HARSHA Administration Miscellaneous 1 each 04/04/25 08:59 04/04/25 08:25 Remove Nicoderm Patch N/A 05/04/25 08:58 1 each [id number] HARSHA Administration Multivitamins/Minerals 1 tab 04/04/25 10:30 04/04/25 10:28 Cerovite Adv Formula Tab PO 05/04/25 10:29 1 tab DAILYBL HARSHA Administration Nicotine 1 patch 04/04/25 09:00 04/04/25 10:28 Nicotine 7 Mg/24 Hr Tdsy TD 05/04/25 08:59 1 patch QAM HARSHA Administration Thiamine HCl 100 mg 04/04/25 09:15 04/04/25 10:28 Thiamine Hcl 100 Mg Tab PO 05/04/25 09:14 100 mg QAM HARSHA Administration
--- NOTE | 2025-04-04 13:15 | Pharmacy Report ---
- Date of Service April 04, 2025 - Pharmacy CVA/TIA Medication Review Medications to Prevent Stroke handout has been added to the patients discharge packet. Antiplatelet(s) * aspirin 81mg po daily, to be increased to 325mg po daily per neurology recommendation Cholesterol * High intensity statin: atorvastatin 40 mg daily (to be increased from 20mg per neurology recommendation) DVT Prophylaxis * SCD thigh Therapeutic Anticoagulation * Patient reports history of "palpitations". Neurology recommending ZIO patch as outpatient Type 2 Diabetes * Patient does not have T2DM
--- NOTE | 2025-04-04 13:30 | Discharge Summary ---
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 #Transient diplopia #Chronic lacunar infarcts involving the b/l basal ganglia Head CT: cerebral atrophy, no acute changes Head/neck CTA: no large vessel occlusion, aneurysm or dissection in the head or neck Brain MRI: 1. No MRI evidence of acute infarction or acute intracranial hemorrhage 2. New chronic lacunar infarcts involving the bilateral basal ganglia >> can c/t diplopia 3. 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 #Chronic R mastoiditis Noted on head CT, head/neck CTA and brain MRI Can further f/u as an outpatient with [facility] otolaryngology regarding this finding #Alcohol use Drinks 1 glass of wine every night with dinner Cessation encouraged No alcohol withdrawal symptoms appreciated during hospitalization #Hypothyroidism On Synthroid #Hypertension Continue lisinopril, Norvasc, BB #Hyperlipidemia Continue statin, ASA #Panic attacks #Generalized anxiety disorder On Xanax PRN, Lexapro PCP: Abimael Matias MD Disposition: DC home in stable condition with PCP, neuro f/u to be arranged >> will d/w our erp programmer to arrange this, pt made aware. Patient seen in collaboration with Dr. Ryan. Please see addendum. I spent a total of 68 minutes coordinating, documenting, and providing care for this patient excluding time spent in the performance of separately billed services or time spent by another provider/QHP. This included personally reviewing all current laboratories and imaging studies, medical reconciliation, outpatient chart review and discussion with specialists. Notes For Next Care Provider 1. Will need to arrange ZIO patch monitoring. 2. Follow-up with stroke neurology clinic through [facility] in 1 month following discharge. Medication Changes From Visit ASA dose increased to 325mg daily Lipitor dose increased to 40mg daily Admission HPI Per Admitting Provider 74-year-old female with past medical history significant for hypothyroidism, hyperlipidemia, Graves' disease, hypercholesterolemia, parotid tumor, CKD stage III, lichen sclerosis, history of tobacco use, general anxiety disorder presents with double vision. Couple of days ago patient was working on computer screen for some time and when she got up she noticed double vision. She walked for 10 minutes and after that the vision improved. She has to close one eye to see better. Today morning she went to see her sister in retirement. She has history of panic attacks. When she saw her sister she felt getting a panic attack. At the time again she had double vision and she drove back home. At this time it lasted for 5 to 10 minutes. Again around 2 PM she started to get double vision again which lasted for about same amount of time and when she decided come to the hospital. Currently vision is okay. She is seeing okay. Denies any headache. No dizziness. No runny nose or sore throat. No earache. Speech is okay. No difficulty swallowing. No chest pain. No shortness of breath. No weakness or tingliness in extremities. No nausea. No abdominal pain. Somewhat constipated. Micturating okay. Hemodynamics are okay. Afebrile. Currently resting comfortably. Past medical history. As mentioned above. Past surgical history. Colonoscopy. Partial hysterectomy. Appendectomy. Thyroidectomy. Removal of parotid gland. Repair of Right hammertoe. Social history. . Quit smoking 2018. Smoked 0.3 pack a day for 42 years. Alcohol wine with dinner. No drug use. Family history. Mother had arthritis. Hyperlipidemia. CAD. Heart attack. Brother had CAD. Father had CAD. Brain aneurysm at age of 67. Sister has hypertension. Admission Exam Per Admitting Provider General-Not in distress Head- atraumatic Eyes- EOMI. Vision is ok PERRL. ENT- oropharynx clear Neck- supple, no JVD. Lungs- clear to auscultation no wheezing or crackles Heart- regular rhythm; no murmur, no gallop. Abdomen- normal bowel sounds, soft, nontender, no distension Extremities- no pretibial edema, no erythema seen Neuro- alert, oriented PERRL, EOMI; no facial palsy; no dysarthria; motor 5/5 bilaterally; no pronator drift, co ordination of movements normal, sensations intact Skin- warm & dry Discharge Exam General-Not in distress Head- atraumatic Eyes- EOMI. Vision is ok PERRL. ENT- oropharynx clear Neck- supple, no JVD. Lungs- clear to auscultation no wheezing or crackles Heart- regular rhythm; no murmur, no gallop. Abdomen- normal bowel sounds, soft, nontender, no distension Extremities- no pretibial edema, no erythema seen Neuro- alert, oriented PERRL, EOMI; no facial palsy; no dysarthria; motor 5/5 bilaterally; no pronator drift, co ordination of movements normal, sensations intact Skin- warm & dry Updated Medication List Medication Instructions Recorded Confirmed Type alprazolam 0.25 mg tablet 0.25 mg PO BID PRN Panic Attack(S) 04/03/25 04/03/25 History amlodipine 5 mg tablet 5 mg PO DAILY 04/03/25 04/03/25 History calcium 600 mg (as 1 tab PO DAILYBL 04/03/25 04/03/25 History carbonate)-vitamin D3 10 mcg (400 unit) tablet (Calcium 600 + D(3)) escitalopram oxalate 10 mg tablet 10 mg PO DAILY 04/03/25 04/03/25 History levothyroxine 100 mcg tablet 100 mcg PO DAILY 04/03/25 04/03/25 History (Synthroid) lisinopril 10 mg tablet 40 mg PO DAILY 04/03/25 04/04/25 History metoprolol succinate 50 mg 50 mg PO DAILY 04/03/25 04/03/25 History tablet,extended release 24 hr multivitamin with minerals 1 tab PO DAILYBL 04/03/25 04/03/25 History aspirin 325 mg tablet 325 mg PO DAILY #30 tabs 04/04/25 Rx atorvastatin 20 mg tablet 40 mg (2 x 20 mg) PO DAILY #60 tabs 04/04/25 Rx Hospital Stay Data Consultations 04/03/25 20:58 ED Decision to Admit Stat 04/04/25 08:00 Consult Neurology Routine Diagnostic Imagining Performed 04/03/25 16:18 CT angio head w con Stat CT angio neck with con Stat FINDINGS: HEAD: Right anterior cerebral artery: No abnormality noted. No occlusion or significant stenosis. Anterior communicating artery is present. No aneurysm. Right middle cerebral artery: No abnormality noted. No occlusion or significant stenosis. No aneurysm. Right posterior cerebral artery: No abnormality noted. No occlusion or significant stenosis. No aneurysm. Right intracranial internal carotid artery: Mild diffuse plaque. No significant stenosis. No dissection or occlusion. Right intracranial vertebral artery: No abnormality noted. No significant stenosis. No dissection or occlusion. Left anterior cerebral artery: No abnormality noted. No occlusion or significant stenosis. No aneurysm. Left middle cerebral artery: No abnormality noted. No occlusion or significant stenosis. No aneurysm. Left posterior cerebral artery: No abnormality noted. No occlusion or significant stenosis. No aneurysm. Left intracranial internal carotid artery: Mild diffuse plaque. No significant stenosis. No dissection or occlusion. Left intracranial vertebral artery: No abnormality noted. No significant stenosis. No dissection or occlusion. Basilar artery: No abnormality noted. No occlusion or significant stenosis. No aneurysm. Other vasculature: No vascular malformation. NECK: Right common carotid artery: No abnormality noted. No significant stenosis. No dissection or occlusion. Right extracranial internal carotid artery: Mild calcific plaque at the bulb. No significant stenosis. No dissection or occlusion. Right external carotid artery: No abnormality noted. No occlusion. Right extracranial vertebral artery: No abnormality noted. No significant stenosis. No dissection or occlusion. Left common carotid artery: No abnormality noted. No significant stenosis. No dissection or occlusion. Left extracranial internal carotid artery: Mild calcific plaque at the bulb. No significant stenosis. No dissection or occlusion. Left external carotid artery: No abnormality noted. No occlusion. Left extracranial vertebral artery: No abnormality noted. No significant stenosis. No dissection or occlusion. Lung apices: No acute abnormality noted. HEAD and NECK: Bones/joints: No significant abnormality. Soft tissues: No abnormality noted. CAROTID STENOSIS REFERENCE USING NASCET CRITERIA: % ICA stenosis = (1 - narrowest ICA diameter/diameter of distal cervical ICA) x 100. Mild - <50% stenosis. Moderate - 50-69% stenosis. Severe - 70-94% stenosis. Near occlusion - 95-99% stenosis. Occluded - 100% stenosis. IMPRESSION: 1. No large vessel occlusion, aneurysm or dissection in the head or neck. 2. Chronic right mastoiditis. CT head/brain wo con Stat FINDINGS: Limitations: None. Brain and extra-axial spaces: There is age appropriate cortical atrophy and chronic ischemic periventricular white matter hypodensity. No acute infarct, hemorrhage or mass noted. Bones/joints: No acute changes. Soft tissues: No acute abnormality noted. Vasculature: No acute abnormality noted. Lymph nodes: Small incidental parotid lymph nodes. Sinuses: No layering fluid in the visualized portions of the paranasal sinuses. Mastoid air cells: Moderate right mastoid thickening. Orbits: No acute abnormality noted. IMPRESSION: 1. Cerebral atrophy. No acute changes. 2. Chronic right mastoiditis. 04/03/25 20:16 MR brain wo con Urgent FINDINGS: Brain Parenchyma: No evidence of acute infarction or hemorrhage. Deep white matter chronic microvascular ischemic changes. Unchanged. Bilateral basal ganglia chronic lacunar infarcts. New. No mass lesions or focal cortical abnormalities identified. Ventricles and Sulci: Normal size and configuration of the lateral ventricles, third ventricle, and fourth ventricle. Prominent sulci and subarachnoid spaces. Unchanged. Posterior Fossa: Cerebellum and brainstem appear normal without evidence of mass lesions or signal abnormalities. Cranial Nerves: Normal course and appearance of cranial nerves identified. Vessels: No evidence of vascular malformations or aneurysms. Intracranial arteries and veins appear normal without evidence of stenosis or occlusion. Orbits and Skull Base: Orbits and skull base structures are normal without evidence of abnormalities. Mastoid air cells: Almost complete opacification of the right-sided mastoid air cells. New. IMPRESSION: 1- No MRI evidence of acute infarction or acute intracranial hemorrhage in this stroke evaluation. 2- New chronic lacunar infarcts involving the bilateral basal ganglia. 3- Diffuse involutional changes and deep?white?matter chronic microvascular ischemic changes, unchanged. 4- Right mastoid air?cell near?complete opacification, new. Correlate clinically to rule out mastoiditis. Discharge Instructions Given to Patient (Per Discharging Provider) MEDICATION CHANGES: Aspirin dose increased to 325mg once daily by mouth as per neurology. Atorvastatin dose increased to 40mg once daily by mouth as per neurology. RECOMMENDATIONS FOR FOLLOW-UP: PCP and neurology follow-up appointments will be arranged for you. You will be contacted soon regarding these. You will need to have an outpatient mandrel maker applied, this will be arranged by your PCP. Seek medical attention if you have: * temperature above 101F * chest pain or trouble breathing * abdominal pain, nausea, vomiting * diarrhea, dark stools or bloody stools * any unanswered questions or concerns Call 911 if symptoms are severe. Please take good care of yourself. It has been a pleasure taking care of you. If you have any questions regarding your recent hospitalization, please contact [facility] and request a [facility] @ [phone]. Total Time Total Time Spent Total Time Spent (In Minutes): 68 Supervising Physician Co-Signing Physician Notes Patient is seen and examined on day of discharge. Double vision resolved. Denies any focal weakness, numbness, tingling, dysphagia, dysarthria, facial deformity, bowel or bladder incontinence. Discussed with neurology today. Advised to quit alcohol, tobacco use. On exam patient had no focal deficits. Lungs clear to auscultation, S1-S2, no murmur, no pedal edema. Patient is admitted for management of TIA. On recommendations from neurology, aspirin increased to 325 mg daily and Lipitor increased to 40 mg daily. Advised to get ZIO monitor as outpatient but also advised to follow-up with ophthalmology and neurology on discharge. Advised to quit alcohol, tobacco use and monitor blood pressure regularly. Patient understands and agrees with the plan. I personally interviewed and examined the patient at bedside. I have reviewed the advanced practitioner's documentation on the date of service referred in note and agree with plan. Patient's care is coordinated with Carli Reed PA-C. Please refer to the documentation above for details of patient's presentation and for discussion of other issues. I spent a total of25 minutes coordinating, documenting, and providing care for this patient excluding time spent in the performance of separately billed services or time spent by another provider/QHP.
--- NOTE | 2025-04-04 13:43 | Electrocardiogram Report ---
Test Reason : Blood Pressure : */* mmHG Vent. Rate : 85 BPM Atrial Rate : 85 BPM P-R Int : 164 ms QRS Dur : 80 ms QT Int : 342 ms P-R-T Axes : 38 24 28 degrees QTcB Int : 406 ms Normal sinus rhythm Confirmed by Dimitrios Quinones ([id number]) on 04/04/2025 1:42:51 PM Referred By: REFERRED SELF Confirmed By: Dimitrios Quinones
[2025-04-04] MEDS ORDERED: STROKE PATIENT DISCHARGE STA (13:57)
[2025-04-04 14:06] VITALS: PULSE 84
[2025-04-05] MEDS ORDERED: REMOVE NICODERM PATCH SCH (08:59)
== END 2025-04-04 14:20 | disposition home or self-care (01) | DRG 57 ==
LOC: ED 15:44 → 4W 23:24 → INTOOBSV 23:24 → 4W 04-04 01:17